=== PATIENT | female | born 1985 | race African-American/Black ===

== ENCOUNTER 2016-07-09 07:28 | Emergency (ER) | payer OTHER ==
[~2016-07-09] VITALS: Wt 55.0 kg
[2016-07-09] MEDS ORDERED: SOD CHLORIDE 0.9% 1,000 ML IV STA (07:36)
--- NOTE | 2016-07-09 08:13 | RADRPT ---
PROCEDURE: Chest Radiograph. CLINICAL INDICATION: Seizure TECHNIQUE: Single frontal chest radiograph. COMPARISON: None available FINDINGS: The cardiomediastinal silhouette is within normal limits. No infiltrate or effusion is seen. Th e bones are intact. IMPRESSION: 1. Unremarkable chest radiograph. RPTAT: AA .Ernie Ocasio MD, MD Date Time Electronically viewed and signed by .Ernie Ocasio MD, on 07/09/2016 08:13 .B/
[2016-07-09] MEDS ORDERED: LACO100T3 PO (08:18)
[2016-07-09] MEDS ORDERED: CLON-429 PO (08:19)
[2016-07-09 08:23] LABS: ADD SCAN DIFF NO
[2016-07-09 08:25] LABS: BASOPHILS % 0.2 % (0.0-2.0); EOSINOPHILS # 0.3 10^3/ul (0.0-0.5); EOSINOPHILS % 5.1 % (0.0-7.0); HEMATOCRIT 34.7 % (37.0-47.0); HEMOGLOBIN 11.4 g/dl (12.0-16.0); LYMPHOCYTES # 1.6 10^3/ul (0.8-2.9); MEAN CORPUSCULAR HEMOGLOBIN 25.8 pg (29.0-33.0); MEAN CORPUSCULAR HGB CONC 32.9 g/dl (32.0-37.0); MEAN CORPUSCULAR VOLUME 78.5 fl (82.0-101.0); MONOCYTE # 0.3 10^3/ul (0.3-0.9); MONOCYTES % 5.9 % (0.0-11.0); NEUTROPHIL # 2.8 10^3/ul (1.6-7.5); NEUTROPHILS % 56.6 % (39.0-77.0); PLATELET COUNT 221 10^3/UL (140-415); RED BLOOD COUNT 4.42 10^6/ul (4.20-5.40); RED CELL DISTRIBUTION WIDTH 17.6 % (11.5-14.5); WHITE BLOOD COUNT 4.9 10^3/ul (4.8-10.8)
[2016-07-09] MEDS ORDERED: OXYC-279 PO (08:26)
[2016-07-09 08:37] LABS: POTASSIUM 4.2 mmol/L (3.5-5.1)
[2016-07-09 08:39] LABS: CREATININE 0.66 mg/dl (0.44-1.00)
[2016-07-09 08:40] LABS: CALCIUM 8.8 mg/dl (8.4-10.2)
--- NOTE | 2016-07-09 08:49 | ERD ---
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 The patient does state that she is allergic to multiple seizure medications, however she is on Vimpat and that does control her seizures. She states that she did not take her Vimpat this morning and states that she forgot to take it ROS All systems reviewed and are negative except as per history of present illness. Medications Home Meds Reported Medications Oxycodone HCl/Acetaminophen (Percocet 5-325 mg Tablet) 1 Each Tablet, 1-2 EACH PO Q6 Y for PAIN, TAB 07/09/16 Clonazepam* (Klonopin*) 0.5 Mg Tab, 0.5 MG PO Q8H Y for ANXIETY, TAB 07/09/16 Lacosamide (Vimpat) 100 Mg Tablet, 100 MG PO BID, TAB 07/09/16 Allergies Allergies: Coded Allergies: divalproex sodium (Verified Adverse Reaction, Unknown, SEIZURES, 07/09/16) levetiracetam (Verified Adverse Reaction, Unknown, SEIZURES, 07/09/16) phenytoin (Verified Adverse Reaction, Unknown, SEIZURES, 07/09/16) topiramate (Verified Adverse Reaction, Unknown, SEIZURES, 07/09/16) PMhx/Soc Hx Neurological Disorder: Yes (seizure) Hx Miscellaneous Medical Probl: Yes (hypoglycemia, fibroids) Hx Alcohol Use: Yes Hx Substance Use: Yes (Marijuana) Hx Tobacco Use: Yes Smoking Status: Current every day smoker Physical Exam Vitals Vital Signs Date Time Temp Pulse Resp B/P Pulse Ox O2 Delivery O2 Flow Rate FiO2 07/09/16 07:45 97.8 67 17 121/84 100 Physical Exam Const: No acute distress Head: Atraumatic Eyes: Normal Conjunctiva ENT: Normal External Ears, Nose and Mouth. Neck: Full range of motion..~ No meningismus. Resp: Clear to auscultation bilaterally Cardio: Regular rate and rhythm, no murmurs Abd: Soft, non tender, non distended. Normal bowel sounds Skin: No petechiae or rashes Back: No midline or flank tenderness Ext: No cyanosis, or edema Neur: Awake and alert Psych: Normal Mood and Affect Result Diagram: 07/09/16 0810 07/09/16 0810 Results 24 hrs Laboratory Tests Test 07/09/16 08:01 07/09/16 08:10 Bedside Glucose 118mg/dL Anion Gap 13 Basophils # 0.010^3/ul Basophils % 0.2% Blood Urea Nitrogen 10mg/dl Calcium Level 8.8mg/dl Carbon Dioxide Level 24mmol/L Chloride Level 109mmol/L Creatinine 0.66mg/dl Eosinophils # 0.310^3/ul Eosinophils % 5.1% Glucose Level 83mg/dl Hematocrit 34.7% Hemoglobin 11.4g/dl Lymphocytes # 1.610^3/ul Lymphocytes % 32.0% Mean Corpuscular Hemoglobin 25.8pg Mean Corpuscular Hemoglobin Concent 32.9g/dl Mean Corpuscular Volume 78.5fl Mean Platelet Volume 9.0fl Monocytes # 0.310^3/ul Monocytes % 5.9% Neutrophils # 2.810^3/ul Neutrophils % 56.6% Nucleated Red Blood Cells # 0.010^3/ul Nucleated Red Blood Cells % 0.0/100WBC Platelet Count 10708^3/UL Potassium Level 4.2mmol/L Red Blood Count 4.4210^6/ul Red Cell Distribution Width 17.6% Serum HCG, Qualitative NEGATIVE Sodium Level 142mmol/L White Blood Count 4.910^3/ul Current Medications Medications (Trade) Dose Ordered Sig/Leo Route PRN Reason Start Time Stop Time Status Last Admin Dose Admin Sodium Chloride (NS) 1,000 ml @ 1,000 mls/hr Q1H STAT IV 07/09/16 07:36 07/09/16 08:35 DC 07/09/16 08:03 Procedures/MDM EKG: Rate/Rhythm: [Normal Sinus Rhythm] QRS, ST, T-waves: [No changes consistent w/ acute ischemia] Impression: [No evidence of ischemia or arrhythmia] Chest X-ray 1V Interpreted by me: Soft Tissue: No acute abnormalities Bones: No acute abnormalities Mediastinum/Cardiac Silhouette/Lungs: [No acute abnormalities] This 30-year-old female presents to the emergency room for evaluation of a seizure. The patient does have a history of seizures and is on Vimpat. She did not take her BiPAP this morning for an unknown reason. She has had no seizure activity here in the emergency room, she is not incontinent of urine, no signs of the tongue abrasion. She is alert oriented to person place and time on my examination. She has no focal neurological deficits. Lab work is within normal limits. The patient will be discharged at this time with instructions to take her medication as prescribed. Smoking Cessation Therapy: Pt. was lectured for greater than 3 minutes on the health risks of continued smoking and the benefits of cessation. Departure Diagnosis: Primary Impression: Seizure disorder Additional Impressions: Microcytic anemia Tobacco abuse Tobacco abuse counseling Condition: Stable NISHA RED DO Jul 09, 2016 08:49
[2016-07-09 10:45] VITALS: BP 121/73; PULSE 72; RESP 18
== END 2016-07-09 10:47 | disposition home or self-care (01) ==
LOC: E/R 07:28
DX: G40.909 Epilepsy, unspecified, not intractable, without status epilepticus (principal); D50.9 Iron deficiency anemia, unspecified; F17.210 Nicotine dependence, cigarettes, uncomplicated; R40.2142 Coma scale, eyes open, spontaneous, at arrival to emergency department; R40.2362 Coma scale, best motor response, obeys commands, at arrival to emergency department; R40.2252 Coma scale, best verbal response, oriented, at arrival to emergency department; Z71.6 Tobacco abuse counseling
CPT/HCPCS: 71010; 80048; 82962; 84703; 85025; 93005; J7030; Z7502

== ENCOUNTER 2016-07-09 11:56 | Inpatient (IN) | payer OTHER ==
[~2016-07-09] VITALS: Ht 162.6 cm; Wt 52.3 kg
[~2016-07-09 11:56] MED LIST: CLON-429 PO; LACO100T3 PO; OXYC-279 PO
[2016-07-09] MEDS ORDERED: SOD CHLORIDE 0.9% 1,000 ML IV SCH (12:19)
[2016-07-09] MEDS ORDERED: ACETAMINOPHEN 325 MG TAB PO PRN (12:30)
[2016-07-09] MEDS ORDERED: ONDANSETRON 4 MG INJ IV PRN (12:30)
--- NOTE | 2016-07-09 13:17 | RADRPT ---
PROCEDURE: CT Brain without contrast. CLINICAL INDICATION: Seizure; Neurologic deficit TECHNIQUE: A CT of the brain was performed on multidetector high-resolution CT scanner utilizing a xial sections from the skull base through the vertex without contrast. One or more of the following dose reduction techniques were used: Automated exposure control, Adjustment of the mA and/or kV acc ording to patient size, and/or use of iterative reconstruction technique. DOSE: CTDI = 40 mGy and the DLP = 555 mGy-cm. COMPARISON: None available FINDINGS: No acute intracranial hemorrhage, significant mass effect or midline shift. The goldstein-white different iation is grossly preserved. The ventricles are normal in size for age. No significant opacification of the visualized paranasal sinuses or mastoids. Partially imaged right lamina papyracea fracture. IMPRESSION: No acute intracranial hemorrhage or significant mass effect. Partially imaged right lamina papyracea fracture. RPTAT: AA .Sunil Shaver MD, MD Date Time Electronically viewed and signed by .Sunil Shaver MD, on 07/09/2016 13:17 .T/
--- NOTE | 2016-07-09 13:32 | ERA ---
ER Documentation Chief Complaint Date/Time DATE: 07/09/16 TIME: 13:29 Chief Complaint WAS DISCHARGED AND HAD SEIZURE IN WAITING ROOM HPI This is a 30-year-old female who presents to the emergency room after a seizure. I evaluated this patient earlier today, and discharge her. She does have idiopathic seizures and is on Vempat and states that she did not take her medication. The patient stated she took her medication while being in the emergency room, and then she was discharged. In the waiting room she had another seizure and was brought back for further evaluation. ROS All systems reviewed and are negative except as per history of present illness. Medications Home Meds Reported Medications Oxycodone HCl/Acetaminophen (Percocet 5-325 mg Tablet) 1 Each Tablet, 1-2 EACH PO Q6 Y for PAIN, TAB 07/09/16 Clonazepam* (Klonopin*) 0.5 Mg Tab, 0.5 MG PO Q8H Y for ANXIETY, TAB 07/09/16 Lacosamide (Vimpat) 100 Mg Tablet, 100 MG PO BID, TAB 07/09/16 Allergies Allergies: Coded Allergies: divalproex sodium (Verified Adverse Reaction, Unknown, SEIZURES, 07/09/16) levetiracetam (Verified Adverse Reaction, Unknown, SEIZURES, 07/09/16) phenytoin (Verified Adverse Reaction, Unknown, SEIZURES, 07/09/16) topiramate (Verified Adverse Reaction, Unknown, SEIZURES, 07/09/16) PMhx/Soc Hx Neurological Disorder: Yes (seizure) Hx Miscellaneous Medical Probl: Yes (hypoglycemia, fibroids) Hx Alcohol Use: Yes Hx Substance Use: Yes (Marijuana) Hx Tobacco Use: Yes Smoking Status: Current every day smoker Physical Exam Vitals Vital Signs Date Time Temp Pulse Resp B/P Pulse Ox O2 Delivery O2 Flow Rate FiO2 07/09/16 12:14 98.4 49 20 122/82 100 Physical Exam INITIAL VITAL SIGNS: Reviewed by me GENERAL: The patient is well developed and appropriate for usual state of health in no apparent distress HEENT: Pupils equal, round, and reactive to light. EOMI. There is no scleral icterus. NECK: C-spine is soft and supple, there is no meningismus. There is no cervical lymphadenopathy. LUNGS: Clear to auscultation bilaterally. There are no rales, wheezes or rhonchi. HEART: Regular rate and rhythm, no murmurs, clicks, rubs or gallops. ABDOMEN: Soft, non-tender, non-distended. There are bowel sounds in all four quadrants. No rebound or guarding. EXTREMITIES: There is no peripheral cyanosis or edema. No focal swelling or erythema. NEUROLOGICAL: The patient moves all four extremities with 5/5 strength. Cranial nerves II - XII are intact. Normal gait. Alert and oriented SKIN: There is no apparent rash or petechiae. HEME/LYMPHATIC: There is no evidence of excessive bruising or lymphedema. PSYCHIATRIC: The patient does not appear anxious or depressed. Results 24 hrs Current Medications Medications (Trade) Dose Ordered Sig/Leo Route PRN Reason Start Time Stop Time Status Last Admin Dose Admin Sodium Chloride (NS) 1,000 ml @ 80 mls/hr [id number] IV 07/09/16 12:19 07/10/16 00:48 07/09/16 12:31 Ondansetron HCl (Zofran Inj) 4 mg BRIDGE ORDER PRN IV NAUSEA AND/OR VOMITING 07/09/16 12:30 07/10/16 12:29 Acetaminophen (Tylenol Tab) 650 mg ER BRIDGE PRN PO MILD PAIN/FEVER 07/09/16 12:30 07/10/16 12:29 Procedures/MDM CT head without: No acute intracranial hemorrhage or significant mass effect. Partially imaged right lamina papyracea fracture. This is a 30-year-old female presents to the emergency room for evaluation of seizures. She was discharged from the emergency room and had a seizure in the waiting room. Given this patient's breakthrough seizures despite taking her oral medications this patient will be placed in for admission at this time. She does have a negative brain CT. And will be admitted to her panel physician , Dr. Schmitz Departure Diagnosis: Primary Impression: Seizure disorder Additional Impression: Closed lamina papyracea fracture Condition: NISHA Nolan DO Jul 09, 2016 13:31
[2016-07-09 13:45] VITALS: BP 127/76; PULSE 86; RESP 22
[2016-07-09] MEDS ORDERED: LORAZEPAM 2 MG INJ IV PRN ×3 (14:00)
[2016-07-09 14:39] VITALS: Ht 162.6 cm; Wt 52.3 kg
[2016-07-09] MEDS ORDERED: NACL 0.9% 3 ML SYG IV SCH (15:30)
[2016-07-09] MEDS: D5W-0.45 NACL + KCL 20 MEQ 1,000 ML IV SCH (16:41)
--- NOTE | 2016-07-09 16:59 | HP ---
DATE OF ADMISSION: 07/09/2016 CHIEF COMPLAINT: Seizures. HISTORY OF PRESENT ILLNESS: The patient is a 30-year-old female with a history of epilepsy. She de nies any other medical history. She states she is on multiple anti-seizure medications, also which have caused her to be somewhat depressed with suicidal ideation and at times it has exacerbated her seizures. The patient is on a medication by the name of Vimpat at home. She states that she follow s up with a neurologist, but has not followed up with him for the past month. She ran out of her se izure medications. She presented to the ED because of persistent seizures. Currently on my exam the patient is able to provide a history, but is behaving as though she is having a tonic-clonic seizur e. She has no postictal state at this time. She denies any other medical history. PAST MEDICAL HISTORY: Seizure disorder. PAST SURGICAL HISTORY: LEEP surgery for precancerous cells in the cervix. HOME MEDICATIONS: 1. Klonopin. 2. Percocet. 3. Vimpat. ALLERGIES: THE PATIENT HAS REPORTED ALLERGIES TO VARIOUS SEIZURE MEDICATIONS, BUT THEY ARE NOT ACTUA L ALLERGIES, SHE JUST STATES SHE JUST FEELS WORSE WITH THOSE MEDICATIONS. FAMILY HISTORY: She is adopted. SOCIAL HISTORY: She smokes marijuana, otherwise denies drug abuse. Denies tobacco use at this time . Denies alcohol abuse. REVIEW OF SYSTEMS: A 12-point review of systems was negative, except for that stated in the HPI. PHYSICAL EXAMINATION: VITAL SIGNS: Temperature is 98.0, pulse 86, respiratory rate 22, blood pressure 127/76, saturation 98% on room air. GENERAL: In no acute distress. The patient is behaving unusually. She is able to talk to me, yet a cting like she is having a tonic-clonic seizure. HEENT: Normocephalic, atraumatic. LUNGS: Clear to auscultation. CARDIOVASCULAR: Regular rate and rhythm. ABDOMEN: Nondistended, nontender, soft. EXTREMITIES: No clubbing, cyanosis or edema. LABORATORY: CBC, white count 7.9, hemoglobin is 11.4, platelets are 221. Chemistry within normal li mits. DIAGNOSTICS: Brain CT shows no acute intracranial process. No mass effect. Partially imaged right lamina fracture. ASSESSMENT AND PLAN: 1. Seizure versus pseudoseizure. The patient's current presentation appears more like a pseudoseizu re in that she is shaking throughout her body, but is able to converse. She has no noted postictal state and she does not appear to be having a partial seizure, as she is moving all of her extremitie s. The patient likely has an underlying psych history. Will consider a psych evaluation. Will con tinue her home medications for seizures, as SHE STATES THAT SHE HAS HAD REACTIONS TO ALL OTHER SEIZU RE MEDICATIONS. I have written for Ativan p.r.n., but I have instructed to give so only if she is h aving an actual seizure. At this point there is no evidence of a true seizure. 2. Prophylaxis. SCDs. Dictated By: VESNA KAHN/NTS Conf#: [id number] DID#: [id number]
[2016-07-09] MEDS: LACOSAMIDE (100 MG/10 ML PO SYR) PO SCH (17:55)
[2016-07-09 20:00] VITALS: BP 112/76; RESP 16
[2016-07-09 20:33] VITALS: BP 112/76; RESP 16
[2016-07-09] MEDS: morphine 2 MG INJ IV PRN (20:33)
[2016-07-09] MEDS ORDERED: NON-FORMULARY/PATIENT OWN MED (Lacosamide (Vimpat) 100 MG) PO SCH (21:00)
[2016-07-10] MEDS: D5W-0.45 NACL + KCL 20 MEQ 1,000 ML IV SCH ×4 (01:15→21:15)
[2016-07-10] MEDS ORDERED: clonAZEPAM 0.5 MG TAB PO ONE (04:00)
[2016-07-10 05:08] LABS: ADD SCAN DIFF NO
[2016-07-10 05:19] LABS: BASOPHILS % 0.2 % (0.0-2.0); EOSINOPHILS # 0.2 10^3/ul (0.0-0.5); EOSINOPHILS % 4.8 % (0.0-7.0); HEMATOCRIT 30.7 % (37.0-47.0); HEMOGLOBIN 10.2 g/dl (12.0-16.0); LYMPHOCYTES # 2.3 10^3/ul (0.8-2.9); LYMPHOCYTES % 48.9 % (15.0-51.0); MEAN CORPUSCULAR HEMOGLOBIN 25.8 pg (29.0-33.0); MEAN CORPUSCULAR HGB CONC 33.2 g/dl (32.0-37.0); MEAN CORPUSCULAR VOLUME 77.7 fl (82.0-101.0); MEAN PLATELET VOLUME 9.7 fl (7.4-10.4); MONOCYTE # 0.3 10^3/ul (0.3-0.9); MONOCYTES % 7.1 % (0.0-11.0); NEUTROPHIL # 1.9 10^3/ul (1.6-7.5); PLATELET COUNT 216 10^3/UL (140-415); RED BLOOD COUNT 3.95 10^6/ul (4.20-5.40); RED CELL DISTRIBUTION WIDTH 17.5 % (11.5-14.5); WHITE BLOOD COUNT 4.8 10^3/ul (4.8-10.8)
[2016-07-10 05:47] LABS: POTASSIUM 3.3 mmol/L (3.5-5.1)
[2016-07-10 05:50] LABS: CALCIUM 8.3 mg/dl (8.4-10.2); CREATININE 0.66 mg/dl (0.44-1.00); MAGNESIUM 1.6 mg/dl (1.7-2.5)
[2016-07-10 07:35] VITALS: BP 121/68; RESP 16
[2016-07-10] MEDS: clonAZEPAM 0.5 MG TAB PO SCH ×2 (08:35→20:49)
[2016-07-10] MEDS: LACOSAMIDE (100 MG/10 ML PO SYR) PO SCH ×2 (08:35→20:49)
[2016-07-10] MEDS: morphine 2 MG INJ IV PRN ×3 (09:29→20:49)
[2016-07-10] MEDS ORDERED: POTASSIUM CHLORIDE (SR) 20 MEQ TAB PO STA (11:58)
[2016-07-10 12:27] LABS: IRON 96 ug/dl (35-150)
[2016-07-10 12:36] LABS: TOTAL IRON BINDING CAPACITY 240 ug/dl (241-421)
[2016-07-10] MEDS ORDERED: MAGNESIUM SULFATE 3 GM in SOD CHLORIDE 0.9% 100 ML IVPB ONE (13:00)
--- NOTE | 2016-07-10 17:37 | PN ---
Date/Time of Note Date/Time of Note DATE: 07/10/16 TIME: 17:34 Assessment/Plan VTE Prophylaxis VTE Prophylaxis Intervention: SCD's Lines/Catheters IV Catheter Type (from Nrs): Peripheral IV Assessment/Plan Chief Complaint/Hosp Course 1. Seizure versus pseudoseizure- presentation appeared more like a pseudoseizure -cont Home Rx -pt having residual weakness, PT eval 2. Hypokalemia-replete PPx- SCD's Problems: Subjective 24 Hr Interval Summary Neurologic: focal-weakness (legs) Exam/Review of Systems Vital Signs Vitals Vital Signs Date Time Temp Pulse Resp B/P Pulse Ox O2 Delivery O2 Flow Rate FiO2 07/10/16 07:35 98.3 55 16 121/68 97 07/09/16 13:45 Room Air Intake and Output 07/09/16 07/09/16 07/10/16 15:00 23:00 07:00 Intake Total 680 ml 1550 ml Balance 680 ml 1550 ml Exam Constitutional: alert, oriented Respiratory: clear to auscultation Cardiovascular: regular rate and rhythm Gastrointestinal: soft, No distended Musculoskeletal: nl extremities to inspection Neurological: focal weakness (l leg) Results Result Diagram: 07/10/16 0451 07/10/16 0451 Results 24 hrs Laboratory Tests Test 07/10/16 04:51 Anion Gap 9 Basophils # 0.0 Basophils % 0.2 Blood Urea Nitrogen 6 L Calcium Level 8.3 L Carbon Dioxide Level 24 Chloride Level 112 H Creatinine 0.66 Eosinophils # 0.2 Eosinophils % 4.8 Glucose Level 96 Hematocrit 30.7 L Hemoglobin 10.2 L Hemoglobin A1c 5.3 Iron Level 96 Lymphocytes # 2.3 Lymphocytes % 48.9 Magnesium Level 1.6 L Mean Corpuscular Hemoglobin 25.8 L Mean Corpuscular Hemoglobin Concent 33.2 Mean Corpuscular Volume 77.7 L Mean Platelet Volume 9.7 Monocytes # 0.3 Monocytes % 7.1 Neutrophils # 1.9 Neutrophils % 39.0 Nucleated Red Blood Cells # 0.0 Nucleated Red Blood Cells % 0.0 Percent Iron Saturation 40 Phosphorus Level 3.0 Platelet Count 216 Potassium Level 3.3 L Red Blood Count 3.95 L Red Cell Distribution Width 17.5 H Sodium Level 142 Total Iron Binding Capacity 240 L White Blood Count 4.8 Medications Medications Current Medications Lorazepam 1 mg 1 mg Q10MIN PRN IV SEIZURES Last administered on 07/09/16 15:36 ; Admin Dose 1 MG; Start 07/09/16 at 14:00 Potassium Chloride/Dextrose/ Sod Cl (D5-1/2ns + KCl 20 Meq) 1,000 ml @ 100 mls/ hr Q10H IV Last administered on 07/10/16 16:05; Admin Dose 100 MLS/HR; Start at 15:15 Ondansetron HCl (Zofran Inj) 4 mg Q6H PRN IV NAUSEA AND/OR VOMITING; Start 07/09 at 15:30 Morphine Sulfate (morphine) 2 mg Q4H PRN IV SEVERE PAIN LEVEL 7-10 Last administered on 07/10/16 15:07; Admin Dose 2 MG; Start 07/09/16 at 15:30 Lacosamide (Vimpat Liq) 100 mg BID PO Last administered on 07/10/16 08:35; Admin Dose 100 MG; Start 07/09/16 at 18:00 Clonazepam (Klonopin) 0.5 mg BID PO Last administered on 07/10/16 08:35; Admin Dose 0.5 MG; Start 07/10/16 at 09:00 VESNA ABRAHAM Jul 10, 2016 17:37
[2016-07-10] MEDS ORDERED: IBUPROFEN 400 MG TAB PO PRN (18:00)
[2016-07-10 20:00] VITALS: BP 104/51; RESP 18
[2016-07-11] MEDS: D5W-0.45 NACL + KCL 20 MEQ 1,000 ML IV SCH ×3 (00:36→17:15)
[2016-07-11] MEDS: morphine 2 MG INJ IV PRN ×6 (01:42→20:30)
[2016-07-11] MEDS: ONDANSETRON 4 MG INJ IV PRN (06:20)
[2016-07-11 06:37] LABS: ADD SCAN DIFF NO
[2016-07-11 06:56] LABS: BASOPHILS % 0.5 % (0.0-2.0); EOSINOPHILS # 0.2 10^3/ul (0.0-0.5); EOSINOPHILS % 5.7 % (0.0-7.0); HEMATOCRIT 31.9 % (37.0-47.0); HEMOGLOBIN 10.5 g/dl (12.0-16.0); LYMPHOCYTES # 2.5 10^3/ul (0.8-2.9); LYMPHOCYTES % 58.2 % (15.0-51.0); MEAN CORPUSCULAR HEMOGLOBIN 25.8 pg (29.0-33.0); MEAN CORPUSCULAR HGB CONC 32.9 g/dl (32.0-37.0); MEAN CORPUSCULAR VOLUME 78.4 fl (82.0-101.0); MEAN PLATELET VOLUME 9.6 fl (7.4-10.4); MONOCYTE # 0.4 10^3/ul (0.3-0.9); MONOCYTES % 9.2 % (0.0-11.0); NEUTROPHIL # 1.1 10^3/ul (1.6-7.5); NEUTROPHILS % 26.4 % (39.0-77.0); PLATELET COUNT 237 10^3/UL (140-415); RED BLOOD COUNT 4.07 10^6/ul (4.20-5.40); RED CELL DISTRIBUTION WIDTH 17.2 % (11.5-14.5); WHITE BLOOD COUNT 4.2 10^3/ul (4.8-10.8)
[2016-07-11 07:13] LABS: POTASSIUM 3.9 mmol/L (3.5-5.1)
[2016-07-11 07:15] LABS: CREATININE 0.64 mg/dl (0.44-1.00)
[2016-07-11 07:16] LABS: PHOSPHORUS 3.8 mg/dl (2.5-4.9)
[2016-07-11 07:17] LABS: CALCIUM 8.6 mg/dl (8.4-10.2); MAGNESIUM 1.7 mg/dl (1.7-2.5)
[2016-07-11 08:21] VITALS: BP 111/57; RESP 16
[2016-07-11] MEDS: LACOSAMIDE (100 MG/10 ML PO SYR) PO SCH ×2 (08:51→20:30)
[2016-07-11] MEDS: clonAZEPAM 0.5 MG TAB PO SCH ×2 (08:51→20:29)
--- NOTE | 2016-07-11 15:02 | PN ---
Date/Time of Note Date/Time of Note DATE: 07/11/16 TIME: 14:57 Assessment/Plan VTE Prophylaxis VTE Prophylaxis Intervention: SCD's Lines/Catheters IV Catheter Type (from Nrs): Peripheral IV Assessment/Plan Chief Complaint/Hosp Course 1. Seizure versus pseudoseizure- presentation appeared more like a pseudoseizure -cont Home Rx -pt having residual weakness in the LE's, PT eval -Neuro consult 2. Hypokalemia-resolved 3. Microcytic Anemia 2/2 Chronic Disease -monitor PPx- SCD's Problems: Subjective 24 Hr Interval Summary Neurologic: focal-weakness (LE's) Exam/Review of Systems Vital Signs Vitals Vital Signs Date Time Temp Pulse Resp B/P Pulse Ox O2 Delivery O2 Flow Rate FiO2 07/11/16 08:21 98.4 52 16 111/57 100 07/09/16 13:45 Room Air Intake and Output 07/10/16 07/10/16 07/11/16 15:00 23:00 07:00 Intake Total 2366 ml 2430 ml Output Total 1800 ml 1800 ml Balance 566 ml 630 ml Exam Constitutional: alert Respiratory: clear to auscultation Cardiovascular: regular rate and rhythm Gastrointestinal: soft, No distended Musculoskeletal: nl extremities to inspection Neurological: focal weakness (LE's) Results Result Diagram: 07/11/16 0455 07/11/16 0455 Results 24 hrs Laboratory Tests Test 07/11/16 04:55 Anion Gap 13 Basophils # 0.0 Basophils % 0.5 Blood Urea Nitrogen 2 L Calcium Level 8.6 Carbon Dioxide Level 24 Chloride Level 108 Creatinine 0.64 Eosinophils # 0.2 Eosinophils % 5.7 Glucose Level 84 Hematocrit 31.9 L Hemoglobin 10.5 L Lymphocytes # 2.5 Lymphocytes % 58.2 H Magnesium Level 1.7 Mean Corpuscular Hemoglobin 25.8 L Mean Corpuscular Hemoglobin Concent 32.9 Mean Corpuscular Volume 78.4 L Mean Platelet Volume 9.6 Monocytes # 0.4 Monocytes % 9.2 Neutrophils # 1.1 L Neutrophils % 26.4 L Nucleated Red Blood Cells # 0.0 Nucleated Red Blood Cells % 0.0 Phosphorus Level 3.8 Platelet Count 237 Potassium Level 3.9 Red Blood Count 4.07 L Red Cell Distribution Width 17.2 H Sodium Level 141 White Blood Count 4.2 L Medications Medications Current Medications Lorazepam 1 mg 1 mg Q10MIN PRN IV SEIZURES Last administered on 07/09/16 15:36 ; Admin Dose 1 MG; Start 07/09/16 at 14:00 Potassium Chloride/Dextrose/ Sod Cl (D5-1/2ns + KCl 20 Meq) 1,000 ml @ 100 mls/ hr Q10H IV Last administered on 07/11/16 12:46; Admin Dose 100 MLS/HR; Start at 15:15 Ondansetron HCl (Zofran Inj) 4 mg Q6H PRN IV NAUSEA AND/OR VOMITING Last administered on 07/11/16 06:20; Admin Dose 4 MG; Start 07/09/16 at 15:30 Morphine Sulfate (morphine) 2 mg Q4H PRN IV SEVERE PAIN LEVEL 7-10 Last administered on 07/11/16 12:45; Admin Dose 2 MG; Start 07/09/16 at 15:30 Lacosamide (Vimpat Liq) 100 mg BID PO Last administered on 07/11/16 08:51; Admin Dose 100 MG; Start 07/09/16 at 18:00 Clonazepam (Klonopin) 0.5 mg BID PO Last administered on 07/11/16 08:51; Admin Dose 0.5 MG; Start 07/10/16 at 09:00 Ibuprofen (Motrin) 400 mg Q6 PRN PO PAIN; Start 07/10/16 at 18:00 VESNA ABRAHAM Jul 11, 2016 15:01
[2016-07-11] MEDS ORDERED: DIPHENHYDRAMINE 25 MG CAP PO PRN (15:30)
[2016-07-11] MEDS ORDERED: MAGNESIUM SULFATE 2 GM/50 ML 50 ML IVPB ONE (16:00)
[2016-07-11 20:00] VITALS: BP 101/50; RESP 18
[2016-07-12] MEDS: morphine 2 MG INJ IV PRN ×3 (00:29→08:44)
[2016-07-12] MEDS: ONDANSETRON 4 MG INJ IV PRN ×2 (02:47→08:41)
[2016-07-12] MEDS: D5W-0.45 NACL + KCL 20 MEQ 1,000 ML IV SCH ×2 (02:48→13:15)
[2016-07-12 05:17] LABS: ADD SCAN DIFF NO
[2016-07-12 05:32] LABS: POTASSIUM 3.8 mmol/L (3.5-5.1)
[2016-07-12 05:34] LABS: CREATININE 0.68 mg/dl (0.44-1.00)
[2016-07-12 05:35] LABS: CALCIUM 8.8 mg/dl (8.4-10.2); MAGNESIUM 1.7 mg/dl (1.7-2.5)
[2016-07-12 05:38] LABS: BASOPHILS % 0.7 % (0.0-2.0); EOSINOPHILS # 0.3 10^3/ul (0.0-0.5); EOSINOPHILS % 5.8 % (0.0-7.0); HEMATOCRIT 35.5 % (37.0-47.0); HEMOGLOBIN 11.5 g/dl (12.0-16.0); LYMPHOCYTES # 2.5 10^3/ul (0.8-2.9); LYMPHOCYTES % 55.1 % (15.0-51.0); MEAN CORPUSCULAR HEMOGLOBIN 25.4 pg (29.0-33.0); MEAN CORPUSCULAR HGB CONC 32.4 g/dl (32.0-37.0); MEAN CORPUSCULAR VOLUME 78.5 fl (82.0-101.0); MEAN PLATELET VOLUME 8.9 fl (7.4-10.4); MONOCYTE # 0.5 10^3/ul (0.3-0.9); NEUTROPHIL # 1.3 10^3/ul (1.6-7.5); NEUTROPHILS % 28.4 % (39.0-77.0); PLATELET COUNT 254 10^3/UL (140-415); RED BLOOD COUNT 4.52 10^6/ul (4.20-5.40); RED CELL DISTRIBUTION WIDTH 17.2 % (11.5-14.5); WHITE BLOOD COUNT 4.5 10^3/ul (4.8-10.8)
[2016-07-12 07:50] VITALS: BP 104/51; RESP 18
[2016-07-12] MEDS: LACOSAMIDE (100 MG/10 ML PO SYR) PO SCH (08:41)
[2016-07-12] MEDS: clonAZEPAM 0.5 MG TAB PO SCH (08:41)
--- NOTE | 2016-07-12 10:39 | PN ---
Date/Time of Note Date/Time of Note DATE: 07/12/16 TIME: 10:34 Assessment/Plan VTE Prophylaxis VTE Prophylaxis Intervention: SCD's Lines/Catheters IV Catheter Type (from Nrsg): Peripheral IV Assessment/Plan Assessment/Plan 1. Seizure versus pseudoseizure- presentation appeared more like a pseudoseizure -cont Home Rx s/p PT evaluation, pt ambulated safely 2. Hypokalemia-resolved 3. Microcytic Anemia 2/2 Chronic Disease -monitor PPx- SCD's SW to see pt pt already has seizure medications at home d/c after SW see pt Subjective 24 Hr Interval Summary Free Text/Dictation no seizures overnight, ambulated with PT today Exam/Review of Systems Vital Signs Vitals Vital Signs Date Time Temp Pulse Resp B/P Pulse Ox O2 Delivery O2 Flow Rate FiO2 07/12/16 07:50 98.4 54 18 104/51 100 07/09/16 13:45 Room Air Intake and Output 07/11/16 07/11/16 07/12/16 15:00 23:00 07:00 Intake Total 1960 ml 1300 ml Output Total 2400 ml 1460 ml Balance -440 ml -160 ml Exam Constitutional: alert Respiratory: clear to auscultation Cardiovascular: regular rate and rhythm Gastrointestinal: soft, No distended Musculoskeletal: nl extremities to inspection Neurological: focal weakness (LE's) Results Result Diagram: 07/12/16 0500 07/12/16 0500 Results 24 hrs Laboratory Tests Test 07/12/16 05:00 Anion Gap 14 Basophils # 0.0 Basophils % 0.7 Blood Urea Nitrogen 4 L Calcium Level 8.8 Carbon Dioxide Level 26 Chloride Level 105 Creatinine 0.68 Eosinophils # 0.3 Eosinophils % 5.8 Glucose Level 90 Hematocrit 35.5 L Hemoglobin 11.5 L Lymphocytes # 2.5 Lymphocytes % 55.1 H Magnesium Level 1.7 Mean Corpuscular Hemoglobin 25.4 L Mean Corpuscular Hemoglobin Concent 32.4 Mean Corpuscular Volume 78.5 L Mean Platelet Volume 8.9 Monocytes # 0.5 Monocytes % 10.0 Neutrophils # 1.3 L Neutrophils % 28.4 L Nucleated Red Blood Cells # 0.0 Nucleated Red Blood Cells % 0.0 Platelet Count 254 Potassium Level 3.8 Red Blood Count 4.52 Red Cell Distribution Width 17.2 H Sodium Level 141 White Blood Count 4.5 L Medications Medications Current Medications Lorazepam 1 mg 1 mg Q10MIN PRN IV SEIZURES Last administered on 07/09/16 15:36 ; Admin Dose 1 MG; Start 07/09/16 at 14:00 Potassium Chloride/Dextrose/ Sod Cl (D5-1/2ns + KCl 20 Meq) 1,000 ml @ 100 mls/ hr Q10H IV Last administered on 07/12/16 02:48; Admin Dose 100 MLS/HR; Start at 15:15 Ondansetron HCl (Zofran Inj) 4 mg Q6H PRN IV NAUSEA AND/OR VOMITING Last administered on 07/12/16 08:41; Admin Dose 4 MG; Start 07/09/16 at 15:30 Morphine Sulfate (morphine) 2 mg Q4H PRN IV SEVERE PAIN LEVEL 7-10 Last administered on 07/12/16 08:44; Admin Dose 2 MG; Start 07/09/16 at 15:30 Lacosamide (Vimpat Liq) 100 mg BID PO Last administered on 07/12/16 08:41; Admin Dose 100 MG; Start 07/09/16 at 18:00 Clonazepam (Klonopin) 0.5 mg BID PO Last administered on 07/12/16 08:41; Admin Dose 0.5 MG; Start 07/10/16 at 09:00 Ibuprofen (Motrin) 400 mg Q6 PRN PO PAIN; Start 07/10/16 at 18:00 Diphenhydramine HCl (Benadryl) 25 mg HS PRN PO INSOMNIA Last administered on 20:29; Admin Dose 25 MG; Start 07/11/16 at 15:30 ALONSO HENDRICKS MD Jul 12, 2016 10:39
--- NOTE | 2016-07-12 10:40 | PDOCDIS ---
Discharge Instructions CONDITION Patient Condition: Good HOME CARE INSTRUCTIONS: Special Diet: regular ACTIVITY: Activity Restrictions: Slowly Increase Activity Rest between Activity Avoid heavy lifting Avoid Heavy Housework FOLLOW UP/APPOINTMENTS Appointments follow up with his own PMD and Neurology physician as outpatient throug her O insurance in 1-2 week after discharge ALONSO HENDRICKS MD Jul 12, 2016 10:40
--- NOTE | 2016-07-12 17:38 | DS ---
DATE OF ADMISSION: 07/09/2016 DATE OF DISCHARGE: 07/12/2016 FINAL DISCHARGE DIAGNOSES: 1. Acute breakthrough seizures versus pseudoseizures. 2. History of a seizure disorder on multiple medications. 3. Hypokalemia secondary to decreased p.o. intake. 4. Microcytic anemia secondary to chronic disease. CONSULTATIONS DONE DURING THIS HOSPITALIZATION: waterside worker consult for placement. HOSPITAL COURSE: This is a 30-year-old female with a past medical history of seizure disorder who d enies any other past medical history. She presented to the [facility] ER with a complaint of multiple seizures at home. It was not clear why the patient has a seizure, but she has been on V impat at home and recently seen by neurologist and she said her medications have been adjusted. She presented with a persistent seizure which was questionable. It was more like a pseudoseizure versu s actual tonic-clonic seizures. The patient had no postictal state. She was alert, oriented, commu nicating and was able to swallow. The patient had a med/surg admission. She was continued on all o f her previous home medications. She is noted to have hypokalemia and hypomagnesemia, which was rep laced. She remained hemodynamically stable. After getting the stable vital signs and adapted physical education aide apy evaluation. She was ambulating without having any difficulty. She is getting discharged to [facility] today. DISPOSITION: To home. The patient was seen by a public health social worker for care home placement. DISCHARGE MEDICATIONS: As per her previous medications. DISCHARGE FOLLOWUP AND INSTRUCTIONS: The patient is to follow with her own PMD and her own neurolog ist through her HMO insurance as outpatient in 1 to 2 weeks after discharge. She has been explained about the discharge plan and followup instructions. She understood and verbalized understanding. Dictated By: ALONSO HENDRICKS MD, KP/LUI Conf#: [id number] DID#: [id number]
== END 2016-07-12 14:05 | disposition home or self-care (01) | DRG 101 ==
LOC: E/R 11:56 → MS2 12:20
PROVIDERS: ADMIT Hospitalist; ATTEND Hospitalist
DX: G40.909 Epilepsy, unspecified, not intractable, without status epilepticus (principal); E83.42 Hypomagnesemia; E87.6 Hypokalemia; D63.8 Anemia in other chronic diseases classified elsewhere
CPT/HCPCS: 70450; 80048; 83036; 83540; 83735; 84100; 85025; 96374; 97162; J2060; J2270; J2405; J3475; J3480; J7030

== ENCOUNTER 2016-08-02 06:24 | Emergency (ER) | payer OTHER ==
[~2016-08-02] VITALS: Ht 162.6 cm; Wt 50.0 kg
[2016-08-02] MEDS ORDERED: SOD CHLORIDE 0.9% 1,000 ML IV STA (06:29)
[2016-08-02] MEDS ORDERED: LORAZEPAM 2 MG INJ IV STA (06:29)
[2016-08-02 06:31] VITALS: Ht 162.6 cm; Wt 50.0 kg
[2016-08-02] MEDS ORDERED: LACOSAMIDE (100 MG/10 ML PO SYR) PO ONE (07:00)
[2016-08-02 07:09] LABS: ADD SCAN DIFF NO
[2016-08-02 07:12] LABS: BASOPHILS % 0.5 % (0.0-2.0); EOSINOPHILS # 0.3 10^3/ul (0.0-0.5); EOSINOPHILS % 8.1 % (0.0-7.0); HEMATOCRIT 32.3 % (37.0-47.0); HEMOGLOBIN 10.6 g/dl (12.0-16.0); LYMPHOCYTES # 1.6 10^3/ul (0.8-2.9); LYMPHOCYTES % 40.6 % (15.0-51.0); MEAN CORPUSCULAR HEMOGLOBIN 25.8 pg (29.0-33.0); MEAN CORPUSCULAR HGB CONC 32.8 g/dl (32.0-37.0); MEAN CORPUSCULAR VOLUME 78.6 fl (82.0-101.0); MEAN PLATELET VOLUME 9.6 fl (7.4-10.4); MONOCYTE # 0.3 10^3/ul (0.3-0.9); MONOCYTES % 7.6 % (0.0-11.0); NEUTROPHIL # 1.6 10^3/ul (1.6-7.5); NEUTROPHILS % 42.9 % (39.0-77.0); PLATELET COUNT 332 10^3/UL (140-415); RED BLOOD COUNT 4.11 10^6/ul (4.20-5.40); RED CELL DISTRIBUTION WIDTH 17.5 % (11.5-14.5); WHITE BLOOD COUNT 3.8 10^3/ul (4.8-10.8)
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
[2016-08-02 07:25] LABS: INR 1.12; PARTIAL THROMBOPLASTIN TIME 29.1 Sec (25.0-35.0); PROTIME 14.4 Sec (12.2-14.2); PT RATIO 1.1
[2016-08-02] MEDS ORDERED: LACO150T2 PO (07:26)
[2016-08-02] MEDS ORDERED: CLON-429 PO (07:26)
[2016-08-02 07:30] LABS: ALBUMIN 3.4 g/dl (3.3-4.9); CHLORIDE 109 mmol/L (97-110); POTASSIUM 3.8 mmol/L (3.5-5.1); SODIUM 143 mmol/L (135-144)
[2016-08-02 07:32] LABS: ALBUMIN/GLOBULIN RATIO 1.25; ANION GAP 11 (8-16); ASPARTATE AMINO TRANSFERASE 19 IU/L (15-46); BILIRUBIN,INDIRECT 0.2 mg/dl (0-1.1); BILIRUBIN,TOTAL 0.2 mg/dl (0.2-1.3); CARBON DIOXIDE 27 mmol/L (21-31); CREATININE 0.73 mg/dl (0.44-1.00); TOTAL PROTEIN 6.1 g/dl (6.1-8.1)
[2016-08-02 07:33] LABS: ALANINE AMINOTRANSFERASE 21 IU/L (13-69); ALKALINE PHOSPHATASE 60 IU/L (42-121); BLOOD UREA NITROGEN 7 mg/dl (7-20); CALCIUM 8.8 mg/dl (8.4-10.2); GLUCOSE 94 mg/dl (70-220)
[2016-08-02 07:36] LABS: ADD UMIC YES; URINE BILIRUBIN (Dip) NEGATIVE (NEGATIVE); URINE BLOOD (Dip) 3+ (NEGATIVE); URINE COLOR LT. YELLOW (YELLOW); URINE GLUCOSE (Dip) NEGATIVE (NEGATIVE); URINE KETONES (Dip) NEGATIVE (NEGATIVE); URINE LEUKOCYTE ESTERASE (Dip) NEGATIVE (NEGATIVE); URINE NITRITE (Dip) NEGATIVE (NEGATIVE); URINE TOTAL PROTEIN (Dip) NEGATIVE (NEGATIVE); URINE UROBILINOGEN (Dip) 0.2 E.U./dL (0.1-1.0)
[2016-08-02 07:54] LABS: BACTERIA,URINE FEW
[2016-08-02 07:57] LABS: ACETAMINOPHEN < 10.0 ug/ml (10.0-30.0); ETHANOL < 10.0 mg/dl; SALICYLATE < 1.0 mg/dl (5.0-30.0)
[2016-08-02 08:14] LABS: BARBITURATES Negative (NEGATIVE); BENZODIAZEPINES Negative (NEGATIVE); CANNABINOIDS Positive (NEGATIVE); COCAINE Negative (NEGATIVE); OPIATES Negative (NEGATIVE)
[2016-08-02 12:12] VITALS: BP 119/59; PULSE 62; RESP 18; TEMP 98.1
== END 2016-08-02 12:30 | disposition home or self-care (01) ==
LOC: E/R 06:24
DX: G40.909 Epilepsy, unspecified, not intractable, without status epilepticus (principal); R40.2252 Coma scale, best verbal response, oriented, at arrival to emergency department; R00.1 Bradycardia, unspecified; R40.2142 Coma scale, eyes open, spontaneous, at arrival to emergency department; R40.2362 Coma scale, best motor response, obeys commands, at arrival to emergency department; Z76.0 Encounter for issue of repeat prescription
CPT/HCPCS: 80053; 80306; 80307; 81001; 84703; 85025; 85610; 85730; 93005; J2060; J7030; Z7610; 81003; 96361; 96374

== ENCOUNTER 2016-08-17 23:44 | Emergency (ER) | payer OTHER ==
[~2016-08-17] VITALS: Ht 162.6 cm; Wt 50.9 kg
[~2016-08-17 23:44] MED LIST changes: +LACO150T2 PO
[2016-08-17 23:52] VITALS: Ht 162.6 cm; Wt 50.9 kg
[2016-08-18] MEDS ORDERED: LORAZEPAM 2 MG INJ IV STA (00:15)
[2016-08-18 00:26] LABS: ADD SCAN DIFF NO
[2016-08-18 00:36] LABS: BASOPHILS % 0.5 % (0.0-2.0); EOSINOPHILS # 0.2 10^3/ul (0.0-0.5); EOSINOPHILS % 2.8 % (0.0-7.0); HEMATOCRIT 34.5 % (37.0-47.0); HEMOGLOBIN 11.5 g/dl (12.0-16.0); LYMPHOCYTES # 3.1 10^3/ul (0.8-2.9); LYMPHOCYTES % 49.9 % (15.0-51.0); MEAN CORPUSCULAR HEMOGLOBIN 26.2 pg (29.0-33.0); MEAN CORPUSCULAR HGB CONC 33.3 g/dl (32.0-37.0); MEAN CORPUSCULAR VOLUME 78.6 fl (82.0-101.0); MEAN PLATELET VOLUME 9.3 fl (7.4-10.4); MONOCYTE # 0.5 10^3/ul (0.3-0.9); MONOCYTES % 7.5 % (0.0-11.0); NEUTROPHIL # 2.4 10^3/ul (1.6-7.5); NEUTROPHILS % 39.1 % (39.0-77.0); PLATELET COUNT 298 10^3/UL (140-415); RED BLOOD COUNT 4.39 10^6/ul (4.20-5.40); RED CELL DISTRIBUTION WIDTH 17.7 % (11.5-14.5); WHITE BLOOD COUNT 6.1 10^3/ul (4.8-10.8)
[2016-08-18 00:39] LABS: CALCIUM 8.8 mg/dl (8.4-10.2); CREATININE 0.69 mg/dl (0.44-1.00); POTASSIUM 3.7 mmol/L (3.5-5.1)
--- NOTE | 2016-08-18 01:02 | ERD ---
ER Documentation Chief Complaint Date/Time DATE: 08/18/16 TIME: 01:01 Chief Complaint SEIZURE UNKNOWN TIME. EMS FOUND PATIENT ON STREET WITH KI UPPER EXT TREMOR HPI -year-old female had a seizure. Patient has history of seizure. EMS found patient history. She has a tremor. Patient says she has been out of the bed lapse of feeding and her Klonopin. No fevers no chills no nausea no vomiting no tongue biting. ROS All systems reviewed and are negative except as per history of present illness. Medications Home Meds Active Scripts Clonazepam* (Klonopin*) 0.5 Mg Tab, 0.5 MG PO DAILY, #20 TAB Prov:ANGELA,LUCIANO 08/02/16 Lacosamide (Vimpat) 150 Mg Tablet, 150 MG PO DAILY, #30 TAB Prov:LUCIANO MILLER 08/02/16 Reported Medications Oxycodone HCl/Acetaminophen (Percocet 5-325 mg Tablet) 1 Each Tablet, 1-2 EACH PO Q6 Y for PAIN, TAB 07/09/16 Clonazepam* (Klonopin*) 0.5 Mg Tab, 0.5 MG PO Q8H Y for ANXIETY, TAB 07/09/16 Lacosamide (Vimpat) 100 Mg Tablet, 100 MG PO BID, TAB 07/09/16 Allergies Allergies: Coded Allergies: divalproex sodium (Verified Adverse Reaction, Unknown, SEIZURES, 08/02/16) levetiracetam (Verified Adverse Reaction, Unknown, SEIZURES, 08/02/16) phenytoin (Verified Adverse Reaction, Unknown, SEIZURES, 08/02/16) topiramate (Verified Adverse Reaction, Unknown, SEIZURES, 08/02/16) PMhx/Soc History of Surgery: Yes ([facility] s[facility]) Anesthesia Reaction: No Hx Neurological Disorder: Yes (Seizures) Hx Respiratory Disorders: No Hx Cardiac Disorders: No Hx Psychiatric Problems: Yes (Anxiety) Hx Miscellaneous Medical Probl: Yes Hx Alcohol Use: No Hx Substance Use: Yes Hx Tobacco Use: No Smoking Status: Unknown if ever smoked Physical Exam Vitals Vital Signs Date Time Temp Pulse Resp B/P Pulse Ox O2 Delivery O2 Flow Rate FiO2 08/17/16 23:52 98.4 72 20 108/79 100 Physical Exam Const: [] Head: Atraumatic Eyes: Normal Conjunctiva ENT: Normal External Ears, Nose and Mouth. Neck: Full range of motion..~ No meningismus. Resp: Clear to auscultation bilaterally Cardio: Regular rate and rhythm, no murmurs Abd: Soft, non tender, non distended. Normal bowel sounds Skin: No petechiae or rashes Back: No midline or flank tenderness Ext: No cyanosis, or edema Neur: Awake and alert Psych: Normal Mood and Affect Result Diagram: 08/18/16 0005 08/18/16 0005 Results 24 hrs Laboratory Tests Test 08/18/16 00:05 White Blood Count 6.110^3/ul Red Blood Count 4.3910^6/ul Hemoglobin 11.5g/dl Hematocrit 34.5% Mean Corpuscular Volume 78.6fl Mean Corpuscular Hemoglobin 26.2pg Mean Corpuscular Hemoglobin Concent 33.3g/dl Red Cell Distribution Width 17.7% Platelet Count 26235^3/UL Mean Platelet Volume 9.3fl Neutrophils % 39.1% Lymphocytes % 49.9% Monocytes % 7.5% Eosinophils % 2.8% Basophils % 0.5% Nucleated Red Blood Cells % 0.0/100WBC Neutrophils # 2.410^3/ul Lymphocytes # 3.110^3/ul Monocytes # 0.510^3/ul Eosinophils # 0.210^3/ul Basophils # 0.010^3/ul Nucleated Red Blood Cells # 0.010^3/ul Sodium Level 136mmol/L Potassium Level 3.7mmol/L Chloride Level 106mmol/L Carbon Dioxide Level 24mmol/L Anion Gap 10 Blood Urea Nitrogen 8mg/dl Creatinine 0.69mg/dl Glucose Level 108mg/dl Calcium Level 8.8mg/dl Current Medications Medications (Trade) Dose Ordered Sig/Leo Route PRN Reason Start Time Stop Time Status Last Admin Dose Admin Lorazepam (Ativan) 1 mg ONCE STAT IV 08/18/16 00:15 08/18/16 00:16 DC 08/18/16 00:38 Procedures/MDM Medical decision-making: This very pleasant patient comes in essentially for recurrent seizure disorder. Patient be discharged home with a refill of her medications. Follow-up with PCP. Return for seizure-like activity. Departure Diagnosis: Primary Impression: Seizure disorder Condition: Stable LILLIE NAGUIANO Aug 18, 2016 01:02
[2016-08-18] MEDS ORDERED: LACO150T2 PO (01:03)
[2016-08-18] MEDS ORDERED: LACO100T3 PO (01:03)
[2016-08-18] MEDS ORDERED: CLON-429 PO (01:05)
[2016-08-18 03:18] VITALS: BP 113/84; PULSE 72; RESP 20; TEMP 98.2
== END 2016-08-18 02:08 | disposition home or self-care (01) ==
LOC: E/R 23:44
DX: G40.909 Epilepsy, unspecified, not intractable, without status epilepticus (principal); R40.2142 Coma scale, eyes open, spontaneous, at arrival to emergency department; R40.2252 Coma scale, best verbal response, oriented, at arrival to emergency department; R40.2362 Coma scale, best motor response, obeys commands, at arrival to emergency department
CPT/HCPCS: 36415; 80048; 85025; 96374; J2060; Z7502

== ENCOUNTER 2016-09-09 01:21 | Emergency (ER) | payer OTHER ==
[~2016-09-09] VITALS: Ht 160 cm; Wt 52.0 kg
[2016-09-09 01:22] VITALS: Ht 160 cm; Wt 52.0 kg
[2016-09-09] MEDS ORDERED: SOD CHLORIDE 0.9% 1,000 ML IV STA ×2 (01:25→03:08)
[2016-09-09] MEDS ORDERED: LACO200T2 PO (01:28)
[2016-09-09] MEDS ORDERED: LORAZEPAM 2 MG INJ IV ONE ×3 (01:30→11:30)
[2016-09-09] MEDS ORDERED: ONDANSETRON 4 MG INJ IV STA (01:33)
[2016-09-09] MEDS ORDERED: ONDANSETRON 4 MG INJ ONE (01:34)
[2016-09-09 02:10] LABS: ADD SCAN DIFF NO
[2016-09-09 02:15] LABS: BASOPHILS % 0.4 % (0.0-2.0); EOSINOPHILS # 0.2 10^3/ul (0.0-0.5); EOSINOPHILS % 3.9 % (0.0-7.0); HEMATOCRIT 35.1 % (37.0-47.0); HEMOGLOBIN 11.7 g/dl (12.0-16.0); LYMPHOCYTES # 1.6 10^3/ul (0.8-2.9); MEAN CORPUSCULAR HEMOGLOBIN 26.1 pg (29.0-33.0); MEAN CORPUSCULAR HGB CONC 33.3 g/dl (32.0-37.0); MEAN CORPUSCULAR VOLUME 78.2 fl (82.0-101.0); MEAN PLATELET VOLUME 9.1 fl (7.4-10.4); MONOCYTE # 0.6 10^3/ul (0.3-0.9); MONOCYTES % 9.7 % (0.0-11.0); NEUTROPHIL # 3.3 10^3/ul (1.6-7.5); NEUTROPHILS % 57.8 % (39.0-77.0); PLATELET COUNT 336 10^3/UL (140-415); RED BLOOD COUNT 4.49 10^6/ul (4.20-5.40); RED CELL DISTRIBUTION WIDTH 17.4 % (11.5-14.5); WHITE BLOOD COUNT 5.7 10^3/ul (4.8-10.8)
[2016-09-09 02:37] LABS: CHLORIDE 106 mmol/L (97-110); POTASSIUM 3.6 mmol/L (3.5-5.1); SODIUM 141 mmol/L (135-144)
[2016-09-09 02:40] LABS: ANION GAP 15 (8-16); CARBON DIOXIDE 24 mmol/L (21-31); CREATININE 0.78 mg/dl (0.44-1.00)
[2016-09-09 02:41] LABS: BLOOD UREA NITROGEN 9 mg/dl (7-20); CALCIUM 9.1 mg/dl (8.4-10.2); GLUCOSE 80 mg/dl (70-220)
[2016-09-09 03:05] LABS: TROPONIN-I < 0.012 ng/ml (0.00-0.12)
--- NOTE | 2016-09-09 03:26 | RADRPT ---
PROCEDURE: XR Chest. CLINICAL INDICATION: Shortness of breath. TECHNIQUE: AP Portable chest. COMPARISON: 07/09/2016 FINDINGS: The cardiomediastinal silhouette is normal. The lungs are clear. The osseous structures are unrema rkable. IMPRESSION: No acute findings. RPTAT: HIKT .Samson Virgen MD, MD Date Time Electronically viewed and signed by .Samson Virgen MD, MD on 09/09/2016 03:26 .T/
[2016-09-09] MEDS ORDERED: OLANZAPINE 10 MG VIAL IM ONE (03:30)
[2016-09-09 03:45] LABS: URINE BLOOD (Dip) POC Negative (NEGATIVE)
--- NOTE | 2016-09-09 03:50 | ERA ---
ER Documentation Chief Complaint Date/Time DATE: 09/09/16 TIME: 03:45 Chief Complaint bib ra for "seizure" after smoking marijuana, awake during sz, hx epilepsy HPI 31-year-old woman brought in by EMS off the streets for possible seizure. She had voluntary jerking of her upper extremities bilaterally while awake, she initially stated she had a seizure history and uses lacosamide and benzodiazepines. She later stated she is having hallucinations and sees things and states she has no history of seizures. She denies fevers or chills, no chest pain or shortness of breath, no vomiting or diarrhea. Patient was transported here by EMS agitated with bizarre behavior. ROS All systems reviewed and are negative except as per history of present illness. Medications Home Meds Active Scripts Lacosamide (Vimpat) 200 Mg Tablet, 200 MG PO BID, #60 TAB Prov:HELENE KERN MD 09/09/16 Clonazepam* (Klonopin*) 0.5 Mg Tab, 0.5 MG PO Q8H Y for ANXIETY, #20 TAB Prov:LILLIE ANGUIANO. 08/18/16 Lacosamide (Vimpat) 150 Mg Tablet, 150 MG PO DAILY, #30 TAB Prov:LILLIE ANGUIANO. 08/18/16 Lacosamide (Vimpat) 100 Mg Tablet, 100 MG PO BID for 30 Days, TAB Prov:LILLIE ANGUIANO. 08/18/16 Clonazepam* (Klonopin*) 0.5 Mg Tab, 0.5 MG PO DAILY, #20 TAB Prov:LUCIANO MILLER 08/02/16 Reported Medications Oxycodone HCl/Acetaminophen (Percocet 5-325 mg Tablet) 1 Each Tablet, 1-2 EACH PO Q6 Y for PAIN, TAB 07/09/16 Clonazepam* (Klonopin*) 0.5 Mg Tab, 0.5 MG PO Q8H Y for ANXIETY, TAB 07/09/16 Allergies Allergies: Coded Allergies: divalproex sodium (Verified Adverse Reaction, Unknown, SEIZURES, 08/02/16) levetiracetam (Verified Adverse Reaction, Unknown, SEIZURES, 08/02/16) phenytoin (Verified Adverse Reaction, Unknown, SEIZURES, 08/02/16) topiramate (Verified Adverse Reaction, Unknown, SEIZURES, 08/02/16) PMhx/Soc Possible seizure history, psychiatric illness, drug abuse History of Surgery: Yes ([facility] s[facility]) Anesthesia Reaction: No Hx Neurological Disorder: Yes (Seizures) Hx Respiratory Disorders: No Hx Cardiac Disorders: No Hx Psychiatric Problems: Yes (Anxiety) Hx Miscellaneous Medical Probl: Yes Hx Alcohol Use: No Hx Substance Use: Yes Hx Tobacco Use: No Smoking Status: Unknown if ever smoked FmHx Family History: No diabetes Physical Exam Vitals Vital Signs Date Time Temp Pulse Resp B/P Pulse Ox O2 Delivery O2 Flow Rate FiO2 09/09/16 03:50 98.1 63 18 128/82 98 Room Air 09/09/16 01:22 98.1 63 18 166/141 100 Physical Exam GENERAL: Well-developed, well-nourished, agitated, appears intoxicated HEENT: Moist mucous membranes, pink conjunctiva, no cervical spine tenderness or step-off deformities, no goiter, no jaundice or icterus, extraocular movements intact without pain. No submandibular induration, and no pharyngeal erythema NEURO: Alert and oriented 3, cranial nerves II through XII intact bilaterally, pupils equal round reactive to light, no focal deficits or facial asymmetry, sensation intact distally Strength 5/5 in upper and lower extremities bilaterally CARDIAC: Regular rate and rhythm, no murmurs rubs or gallops LUNGS: Clear bilaterally no wheezing crackles or stridor ABDOMEN: Soft nontender, no guarding, no rigidity, no rebound, no psoas sign no obturator sign. Normoactive bowel sounds SKIN: Warm and dry to touch, no abrasions, contusions, or hematomas, no lacerations, no ecchymosis, no target lesions, and without ulcers EXTREMITIES: No clubbing cyanosis or edema, calves are bilaterally symmetrical, no Homans sign, no popliteal cord sign. Distal pulses equal and bilateral PSYCH: Agitated Result Diagram: 09/09/16 0130 09/09/16 013 Results 24 hrs Laboratory Tests Test 09/09/16 01:30 09/09/16 03:15 09/09/16 03:45 White Blood Count 5.710^3/ul Red Blood Count 4.4910^6/ul Hemoglobin 11.7g/dl Hematocrit 35.1% Mean Corpuscular Volume 78.2fl Mean Corpuscular Hemoglobin 26.1pg Mean Corpuscular Hemoglobin Concent 33.3g/dl Red Cell Distribution Width 17.4% Platelet Count 56518^3/UL Mean Platelet Volume 9.1fl Neutrophils % 57.8% Lymphocytes % 28.0% Monocytes % 9.7% Eosinophils % 3.9% Basophils % 0.4% Nucleated Red Blood Cells % 0.0/100WBC Neutrophils # 3.310^3/ul Lymphocytes # 1.610^3/ul Monocytes # 0.610^3/ul Eosinophils # 0.210^3/ul Basophils # 0.010^3/ul Nucleated Red Blood Cells # 0.010^3/ul Sodium Level 141mmol/L Potassium Level 3.6mmol/L Chloride Level 106mmol/L Carbon Dioxide Level 24mmol/L Anion Gap 15 Blood Urea Nitrogen 9mg/dl Creatinine 0.78mg/dl Glucose Level 80mg/dl Calcium Level 9.1mg/dl Troponin I < 0.012ng/ml Salicylates Level < 1.0mg/dl Acetaminophen Level < 10.0ug/ml Ethyl Alcohol Level < 10.0mg/dl Urine Color LT. YELLOW Urine Clarity CLEAR Urine pH 5.5 Urine Specific [place] 1.020 Urine Ketones NEGATIVE Urine Nitrite NEGATIVE Urine Bilirubin NEGATIVE Urine Urobilinogen 0.2 E.U./dL Urine Leukocyte Esterase NEGATIVE Urine Hemoglobin NEGATIVE Urine Glucose NEGATIVE% Urine Total Protein NEGATIVE Urine Opiates Screen NEGATIVE Urine Barbiturates NEGATIVE Urine Amphetamines Screen POSITIVE Urine Benzodiazepines Screen NEGATIVE Urine Cocaine Screen NEGATIVE Urine Cannabinoids POSITIVE Bedside Urine pH (LAB) 6.0 Bedside Urine Protein (LAB) Trace Bedside Urine Glucose (UA) Negative Bedside Urine Ketones (LAB) 1+ Bedside Urine Blood Negative Bedside Urine Nitrite (LAB) Negative Bedside Urine Leukocyte Esterase (L Negative Current Medications Medications (Trade) Dose Ordered Sig/Leo Route PRN Reason Start Time Stop Time Status Last Admin Dose Admin Sodium Chloride (NS) 1,000 ml @ 1,000 mls/hr Q1H STAT IV 09/09/16 01:25 09/09/16 02:24 DC 09/09/16 01:44 Lorazepam (Ativan) 1 mg ONCE ONCE IV 09/09/16 01:30 09/09/16 01:31 DC 09/09/16 01:44 Ondansetron HCl (Zofran Inj) 4 mg ONCE STAT IV 09/09/16 01:33 09/09/16 01:35 DC 09/09/16 01:44 Ondansetron HCl (Zofran Inj) 4 mg STK-MED ONCE .ROUTE 09/09/16 01:34 09/09/16 01:35 DC Lorazepam 2 mg 2 mg ONCE ONCE IV 09/09/16 02:30 09/09/16 02:31 DC 09/09/16 02:12 Sodium Chloride (NS) 1,000 ml @ 1,000 mls/hr Q1H STAT IV 09/09/16 03:08 09/09/16 04:07 DC 09/09/16 03:47 Olanzapine (Zyprexa) 10 mg ONCE ONCE IM 09/09/16 03:30 09/09/16 03:31 DC 09/09/16 03:41 Procedures/MDM IV line was established patient was placed on manager monitoring rhythm strip revealed a sinus rhythm at about 90 bpm with upright P and T waves. Patient was afebrile. For initial agitation I administered lorazepam 1 mg intramuscular injection later followed by 2 mg of Ativan IM for continued agitation and involuntary upper extremity jerking. Patient also received Zofran 4 mg IV CBC and electrolytes were unremarkable, alcohol level was negative. For continued combative behavior I administered olanzapine 10 mg intramuscular injection and with continued complaints of auditory and visual hallucinations I ordered tele-psychiatry evaluation. Straight catheterization of the bladder was performed, and I administered 1 L of normal saline intravenously for dehydration. One AP view of the chest performed, read by me reveals no acute infiltrates, normal mediastinum, sharp costophrenic and cardiac borders, no air under the diaphragm. EKG performed, read by me revealed a normal sinus rhythm at 93 bpm, normal axis , narrow QRS complex, no concerning ST elevations or depressions noted. Patient's behavioral symptoms have stabilized while in the department. Patient is medically cleared and appropriate for psychiatric evaluation and work up. No e/o neurologic, toxic, infectious, or metabolic cause. Tylenol and aspirin levels were negative, drug screen was positive for methamphetamines consistent with her presentation and cannabinoids Differential diagnoses considered, included but not limited to acute coronary syndrome, pulmonary embolism, aortic dissection, abdominal aortic aneurysm, sepsis, stroke, meningitis, encephalitis, pneumonia, appendicitis, cholecystitis , bowel obstruction, pyelonephritis, nephrolithiasis, cystitis, as well as metabolic, hematologic, and electrolyte abnormalities. As well as abscess, cellulitis, fractures, and dislocations. Departure Diagnosis: Primary Impression: Seizure Additional Impressions: Methamphetamine abuse Psychiatric illness Condition: Stable Patient Instructions: Seizure, Recurrent [Adult] HELENE KERN MD September 09, 2016 03:50
[2016-09-09 03:53] LABS: ADD UMIC NO; URINE BILIRUBIN (Dip) NEGATIVE (NEGATIVE); URINE BLOOD (Dip) NEGATIVE (NEGATIVE); URINE COLOR LT. YELLOW (YELLOW); URINE GLUCOSE (Dip) NEGATIVE (NEGATIVE); URINE KETONES (Dip) NEGATIVE (NEGATIVE); URINE LEUKOCYTE ESTERASE (Dip) NEGATIVE (NEGATIVE); URINE NITRITE (Dip) NEGATIVE (NEGATIVE); URINE TOTAL PROTEIN (Dip) NEGATIVE (NEGATIVE); URINE UROBILINOGEN (Dip) 0.2 E.U./dL (0.1-1.0)
[2016-09-09 04:01] LABS: ACETAMINOPHEN < 10.0 ug/ml (10.0-30.0); SALICYLATE < 1.0 mg/dl (5.0-30.0)
[2016-09-09 04:30] LABS: BARBITURATES NEGATIVE (NEGATIVE); BENZODIAZEPINES NEGATIVE (NEGATIVE); CANNABINOIDS POSITIVE (NEGATIVE); COCAINE NEGATIVE (NEGATIVE); OPIATES NEGATIVE (NEGATIVE)
--- NOTE | 2016-09-09 08:28 | PSY ---
Date/Time of Note Date/Time of Note DATE: 09/09/16 TIME: 08:23 Psychiatric Subjective Eval Consent Pt consented to telemedicine: Yes Subjective Evaluation Patient location: emergency Chief Complaint: bib ra for "seizure" after smoking marijuana, awake during sz , hx epilepsy History of present illness Spoke with Dr Monsivais. 31 yo homeless disabled AAF BIB EMS after a seizure. Pt c/o VH. No SI or HI. UDS + thc and amph. Pt is on Klonopin and Vimpat ( the latter is known to cause VH as well). Pt is drowsy. Denies to me SI or HI , denies AH , denies paranoia. + Vh, "shadows". Says, she feels depressed. Willing to go to a retirement. Pt is on psych meds, last inpt was 2 weeks ago, says , she has her meds in her belongings. Does nto recall names of her psych meds. Past psychiatric history last inpt was 2 weeks ago Hospitalization: yes Medical history Problems Medical Problems: (1) Breakthrough seizure Status: Acute (2) Closed lamina papyracea fracture Status: Acute (3) Medication refill Status: Acute (4) Menstrual disorder Status: Acute (5) Methamphetamine abuse Status: Acute (6) Microcytic anemia Status: Acute (7) Psychiatric illness Status: Acute (8) Seizure Status: Acute (9) Seizure disorder Status: Acute (10) Seizure disorder Status: Acute (11) Seizure disorder Status: Acute (12) Tobacco abuse Status: Acute (13) Tobacco abuse counseling Status: Acute Allergies: Coded Allergies: divalproex sodium (Verified Adverse Reaction, Unknown, SEIZURES, 08/02/16) levetiracetam (Verified Adverse Reaction, Unknown, SEIZURES, 08/02/16) phenytoin (Verified Adverse Reaction, Unknown, SEIZURES, 08/02/16) topiramate (Verified Adverse Reaction, Unknown, SEIZURES, 08/02/16) Substance Abuse Substance abuse history: Yes Prior substance abuse treatmen: No Social History Marital status: single Level of education: 11th grade DPA/Conservatorship: No Occupation/Nursing Home: homeless, on ssi Psychiatric Objective Eval Mental Status Examination: Appearance: Disheveled Eye Contact: Fair Behavior: Cooperative Speech: Clear AFFECT: Appropriate Mood: Appropriate/Full Though Process: Linear Thought Content: Hallucinations Suicidal: No Homicidal: No On 72 hour hold: No Orientation: x4 Cognition: Drowsy Insight: Impared Judgement: Impared Laboratory Results Laboratory Tests Test 09/09/16 01:30 09/09/16 03:15 09/09/16 03:45 White Blood Count 5.710^3/ul Red Blood Count 4.4910^6/ul Hemoglobin 11.7g/dl Hematocrit 35.1% Mean Corpuscular Volume 78.2fl Mean Corpuscular Hemoglobin 26.1pg Mean Corpuscular Hemoglobin Concent 33.3g/dl Red Cell Distribution Width 17.4% Platelet Count 51602^3/UL Mean Platelet Volume 9.1fl Neutrophils % 57.8% Lymphocytes % 28.0% Monocytes % 9.7% Eosinophils % 3.9% Basophils % 0.4% Nucleated Red Blood Cells % 0.0/100WBC Neutrophils # 3.310^3/ul Lymphocytes # 1.610^3/ul Monocytes # 0.610^3/ul Eosinophils # 0.210^3/ul Basophils # 0.010^3/ul Nucleated Red Blood Cells # 0.010^3/ul Sodium Level 141mmol/L Potassium Level 3.6mmol/L Chloride Level 106mmol/L Carbon Dioxide Level 24mmol/L Anion Gap 15 Blood Urea Nitrogen 9mg/dl Creatinine 0.78mg/dl Glucose Level 80mg/dl Calcium Level 9.1mg/dl Troponin I < 0.012ng/ml Salicylates Level < 1.0mg/dl Acetaminophen Level < 10.0ug/ml Ethyl Alcohol Level < 10.0mg/dl Urine Color LT. YELLOW Urine Clarity CLEAR Urine pH 5.5 Urine Specific [place] 1.020 Urine Ketones NEGATIVE Urine Nitrite NEGATIVE Urine Bilirubin NEGATIVE Urine Urobilinogen 0.2 E.U./dL Urine Leukocyte Esterase NEGATIVE Urine Hemoglobin NEGATIVE Urine Glucose NEGATIVE% Urine Total Protein NEGATIVE Urine Opiates Screen NEGATIVE Urine Barbiturates NEGATIVE Urine Amphetamines Screen POSITIVE Urine Benzodiazepines Screen NEGATIVE Urine Cocaine Screen NEGATIVE Urine Cannabinoids POSITIVE Bedside Urine pH (LAB) 6.0 Bedside Urine Protein (LAB) Trace Bedside Urine Glucose (UA) Negative Bedside Urine Ketones (LAB) 1+ Bedside Urine Blood Negative Bedside Urine Nitrite (LAB) Negative Bedside Urine Leukocyte Esterase (L Negative Assessment and Plan Assessment/Diagnosis [place] I: AMPHETAMINE INDUCED PSYCHOSIS [place] II: DEFERED [place] III: SEIZURE D/O [place] IV: SEVERE [place] V: GAF 40 Recommendation/Plan Medication Management PT STATES SHE DOES HAVE HER PSYCH MEDS IN HER BAG. SHE WAS ADVSIED TO CONTINUE Psychotherapy DEFER TO OUTPT Follow-up/Disposition PLEASE REFER TO [facility] 6010 Recommendation: NII SNOW MD September 09, 2016 08:28
--- NOTE | 2016-09-09 11:07 | EN ---
Date/Time of Note Date/Time of Note DATE: 09/09/16 TIME: 11:05 ER Progress Note The psychiatric evaluation was signed out to me by the departing physician. Psychiatrist has evaluated the patient now that she is no longer intoxicated and amphetamines and states that she could be discharged with drug treatment center follow-up. We are giving her a list of places that she can go for treatment. Patient's is picking her up. Drs. Fermin Quiroga provided discharge instructions with some Vimpat for seizures. She has been instructed to follow-up with a neurologist or primary care doctor. There is also quite possible the patient is not actually having seizures as she was awake during one seizure that I witnessed in saying "I am having a seizure now". She began shaking her body while conversing. When told that she was not actually having a seizure she stopped. She still may benefit from neurological evaluation. ALEKS CRAIG DO September 09, 2016 11:07
[2016-09-09 11:35] VITALS: BP 126/82; PULSE 75; RESP 16; TEMP 98.1
== END 2016-09-09 15:51 | disposition home or self-care (01) ==
LOC: E/R 01:21
DX: R56.9 Unspecified convulsions (principal); F15.10 Other stimulant abuse, uncomplicated; F99 Mental disorder, not otherwise specified; R40.2142 Coma scale, eyes open, spontaneous, at arrival to emergency department; R40.2232 Coma scale, best verbal response, inappropriate words, at arrival to emergency department; R40.2342 Coma scale, best motor response, flexion withdrawal, at arrival to emergency department
CPT/HCPCS: 36415; 71010; 80048; 80306; 80307; 81003; 84484; 85025; 93005; 96372; 96374; 96375; 96376; J2060; J2405; J7030; Z7502

== ENCOUNTER 2016-09-13 10:27 | Emergency (ER) | payer OTHER ==
[~2016-09-13] VITALS: Ht 165.1 cm; Wt 60.0 kg
[~2016-09-13 10:27] MED LIST changes: +LACO200T2 PO
[2016-09-13 10:30] VITALS: Ht 165.1 cm; Wt 60.0 kg
--- NOTE | 2016-09-13 12:05 | ERA ---
ER Documentation Chief Complaint Date/Time DATE: 09/13/16 TIME: 12:04 Chief Complaint BIB RA FOR EVAL OF DRUG USE MARIJUANA HPI The patient is a 31-year-old female, presenting to the ER because of general body pain, congestion for 3 days. She admitted to using marijuana last night. He denies fever, chills, complaints of intermittent dry cough and vague abdominal discomfort for the last 2 days. She denies vomiting, nausea, dysuria , diarrhea, constipation. She has history of drug abuse, smokes socially, drinks socially Past medical history: Seizure disorder, anxiety, low back pain Past surgical history: ROS All systems reviewed and are negative except as per history of present illness. Medications Home Meds Active Scripts Lacosamide (Vimpat) 200 Mg Tablet, 200 MG PO BID, #60 TAB Prov:HELENE KERN MD 09/09/16 Clonazepam* (Klonopin*) 0.5 Mg Tab, 0.5 MG PO Q8H Y for ANXIETY, #20 TAB Prov:LILLIE ANGUIANO 08/18/16 Lacosamide (Vimpat) 150 Mg Tablet, 150 MG PO DAILY, #30 TAB Prov:LILLIE ANGUIANO. 08/18/16 Lacosamide (Vimpat) 100 Mg Tablet, 100 MG PO BID for 30 Days, TAB Prov:LILLIE ANGUIANO 08/18/16 Clonazepam* (Klonopin*) 0.5 Mg Tab, 0.5 MG PO DAILY, #20 TAB Prov:LUCIANO MILLER 08/02/16 Reported Medications Clonazepam* (Klonopin*) 0.5 Mg Tab, 0.5 MG PO Q8H Y for ANXIETY, TAB 07/09/16 Discontinued Reported Medications Oxycodone HCl/Acetaminophen (Percocet 5-325 mg Tablet) 1 Each Tablet, 1-2 EACH PO Q6 Y for PAIN, TAB 07/09/16 Allergies Allergies: Coded Allergies: divalproex sodium (Verified Adverse Reaction, Unknown, SEIZURES, 08/02/16) levetiracetam (Verified Adverse Reaction, Unknown, SEIZURES, 08/02/16) phenytoin (Verified Adverse Reaction, Unknown, SEIZURES, 08/02/16) topiramate (Verified Adverse Reaction, Unknown, SEIZURES, 08/02/16) PMhx/Soc History of Surgery: Yes ([facility] sx) Anesthesia Reaction: No Hx Neurological Disorder: Yes (Seizures) Hx Respiratory Disorders: No Hx Cardiac Disorders: No Hx Psychiatric Problems: Yes (Anxiety) Hx Miscellaneous Medical Probl: Yes Hx Alcohol Use: No Hx Substance Use: Yes Hx Tobacco Use: No Physical Exam Vitals Vital Signs Date Time Temp Pulse Resp B/P Pulse Ox O2 Delivery O2 Flow Rate FiO2 09/13/16 15:44 99.1 82 18 118/78 98 Room Air 09/13/16 14:26 101.0 84 18 123/86 98 Room Air 09/13/16 12:00 101.0 76 16 122/66 98 Room Air 09/13/16 10:30 103.0 112 18 125/60 98 Physical Exam Const: No acute distress. Head: Atraumatic. Eyes: Normal Conjunctiva. ENT: Normal External Ears, Nose and Mouth. Neck: Full range of motion. No meningismus. Resp: Clear to auscultation bilaterally. Cardio: Regular but tachycardic Abd: Soft, non distended, normal bowel sounds, non tender. Skin: No petechiae or rashes. Back: No midline or flank tenderness. Ext: No cyanosis, or edema. Neur: Awake and alert. No focal deficit Psych: Normal Mood and Affect. Result Diagram: 09/13/16 1250 09/13/16 1250 Results 24 hrs Laboratory Tests Test 09/13/16 12:50 09/13/16 13:38 09/13/16 14:15 White Blood Count 4.510^3/ul Red Blood Count 5.2010^6/ul Hemoglobin 13.5g/dl Hematocrit 40.8% Mean Corpuscular Volume 78.5fl Mean Corpuscular Hemoglobin 26.0pg Mean Corpuscular Hemoglobin Concent 33.1g/dl Red Cell Distribution Width 17.2% Platelet Count 26700^3/UL Mean Platelet Volume fl Neutrophils % 74.2% Lymphocytes % 18.3% Monocytes % 7.1% Eosinophils % 0.0% Basophils % 0.2% Nucleated Red Blood Cells % 0.0/100WBC Neutrophils # 3.410^3/ul Lymphocytes # 0.810^3/ul Monocytes # 0.310^3/ul Eosinophils # 0.010^3/ul Basophils # 0.010^3/ul Nucleated Red Blood Cells # 0.010^3/ul Sodium Level 138mmol/L Potassium Level 3.9mmol/L Chloride Level 101mmol/L Carbon Dioxide Level 23mmol/L Anion Gap 18 Blood Urea Nitrogen 12mg/dl Creatinine 0.90mg/dl Glucose Level 98mg/dl Calcium Level 8.8mg/dl Total Bilirubin 0.3mg/dl Direct Bilirubin 0.00mg/dl Indirect Bilirubin 0.3mg/dl Aspartate Amino Transf (AST/SGOT) 32IU/L Alanine Aminotransferase (ALT/SGPT) 34IU/L Alkaline Phosphatase 72IU/L Total Protein 8.3g/dl Albumin 4.4g/dl Globulin 3.90g/dl Albumin/Globulin Ratio 1.12 Lipase 74U/L Ethyl Alcohol Level < 10.0mg/dl Bedside Urine pH (LAB) 5.5 Bedside Urine Protein (LAB) 2+ Bedside Urine Glucose (UA) Negative Bedside Urine Ketones (LAB) 1+ Bedside Urine Blood 3+ Bedside Urine Nitrite (LAB) Negative Bedside Urine Leukocyte Esterase (L Negative Urine Opiates Screen Negative Urine Barbiturates Negative Urine Amphetamines Screen Negative Urine Benzodiazepines Screen Negative Urine Cocaine Screen Negative Urine Cannabinoids Positive Current Medications Medications (Trade) Dose Ordered Sig/Leo Route PRN Reason Start Time Stop Time Status Last Admin Dose Admin Sodium Chloride (NS) 1,000 ml @ 1,000 mls/hr Q1H STAT IV 09/13/16 12:22 09/13/16 13:21 DC 09/13/16 12:54 Ketorolac Tromethamine 30 mg 30 mg ONCE STAT IV 09/13/16 13:43 09/13/16 13:44 DC 09/13/16 13:52 Sodium Chloride (NS) 1,000 ml @ 1,000 mls/hr Q1H ONCE IV 09/13/16 14:00 09/13/16 14:59 DC 09/13/16 14:02 Lorazepam (Ativan) 1 mg ONCE ONCE IV 09/13/16 15:00 09/13/16 15:01 DC 09/13/16 14:43 Procedures/[address] [address] Radiology Main Line: [phone] DIAGNOSTIC IMAGING REPORT Patient: DEANN GONZALEZ : 1985 Age: 31 Sex: F MR #: [id number] DOS: 09/13/16 1222 Ordering MD: JAYDEN DINERO MD Location: E/R Room/Bed: PROCEDURE: Chest Radiograph. CLINICAL INDICATION: Abdominal pain TECHNIQUE: Single frontal chest radiograph. COMPARISON: Chest radiograph 07/09/2016 FINDINGS: The cardiomediastinal silhouette is within normal limits. No infiltrate or effusion is seen. The bones are intact. IMPRESSION: 1. Unremarkable chest radiograph. RPTAT: KK .Ernie Ocasio MD, Date Time Electronically viewed and signed by .Ernie Ocasio MD, on 2016 12:42 .B/ CC: JAYDEN DINERO MD MEDICAL MAKING DECISION: The patient is a 31-year-old female, presenting with acute recurrent seizure, acute dehydration. She was treated with 2 L normal saline for acute dehydration, Toradol 30 mg IV for her general body pain with good response She had a recurrent seizure in the ER where she was treated with Ativan 1 mg IV with good response The differential diagnoses considered include but are not limited to medication non-compliance, alcohol intoxication or withdrawal, drug intoxication or withdrawal, trauma, CVA, tumor, metabolic encephalopathy. Departure Diagnosis: Primary Impression: Recurrent seizures Additional Impressions: Dehydration Leukopenia Condition: Stable Comments She is awake, alert, not postictal. I recommended her admission for observation , however she declined The patient signed out AGAINST MEDICAL ADVICE. Risks, benefits, alternatives were explained to the patient. Risks include but not limited to and permanent disability JAYDEN DINERO MD September 13, 2016 12:05
[2016-09-13] MEDS ORDERED: SOD CHLORIDE 0.9% 1,000 ML IV STA (12:22)
--- NOTE | 2016-09-13 12:42 | RADRPT ---
PROCEDURE: Chest Radiograph. CLINICAL INDICATION: Abdominal pain TECHNIQUE: Single frontal chest radiograph. COMPARISON: Chest radiograph 07/09/2016 FINDINGS: The cardiomediastinal silhouette is within normal limits. No infiltrate or effusion is seen. Th e bones are intact. IMPRESSION: 1. Unremarkable chest radiograph. RPTAT: KK .Ernie Ocasio MD, MD Date Time Electronically viewed and signed by .Ernie Ocasio MD, on 09/13/2016 12:42 .B/
[2016-09-13 13:10] LABS: ADD SCAN DIFF NO
[2016-09-13 13:12] LABS: ABNORMAL IP MESSAGE 1; BASOPHILS % 0.2 % (0.0-2.0); HEMATOCRIT 40.8 % (37.0-47.0); HEMOGLOBIN 13.5 g/dl (12.0-16.0); LYMPHOCYTES # 0.8 10^3/ul (0.8-2.9); LYMPHOCYTES % 18.3 % (15.0-51.0); MEAN CORPUSCULAR HGB CONC 33.1 g/dl (32.0-37.0); MEAN CORPUSCULAR VOLUME 78.5 fl (82.0-101.0); MONOCYTE # 0.3 10^3/ul (0.3-0.9); MONOCYTES % 7.1 % (0.0-11.0); NEUTROPHIL # 3.4 10^3/ul (1.6-7.5); NEUTROPHILS % 74.2 % (39.0-77.0); PLATELET COUNT 204 10^3/UL (140-415); RED CELL DISTRIBUTION WIDTH 17.2 % (11.5-14.5); WHITE BLOOD COUNT 4.5 10^3/ul (4.8-10.8)
[2016-09-13 13:34] LABS: ALBUMIN 4.4 g/dl (3.3-4.9); CHLORIDE 101 mmol/L (97-110); SODIUM 138 mmol/L (135-144)
[2016-09-13 13:35] LABS: POTASSIUM 3.9 mmol/L (3.5-5.1)
[2016-09-13 13:37] LABS: URINE BLOOD (Dip) POC 3+ (NEGATIVE)
[2016-09-13 13:37] LABS: ALANINE AMINOTRANSFERASE 34 IU/L (13-69); ALBUMIN/GLOBULIN RATIO 1.12; ALKALINE PHOSPHATASE 72 IU/L (42-121); ANION GAP 18 (8-16); ASPARTATE AMINO TRANSFERASE 32 IU/L (15-46); BILIRUBIN,INDIRECT 0.3 mg/dl (0-1.1); BILIRUBIN,TOTAL 0.3 mg/dl (0.2-1.3); BLOOD UREA NITROGEN 12 mg/dl (7-20); CARBON DIOXIDE 23 mmol/L (21-31); GLUCOSE 98 mg/dl (70-220); TOTAL PROTEIN 8.3 g/dl (6.1-8.1)
[2016-09-13 13:38] LABS: CALCIUM 8.8 mg/dl (8.4-10.2)
[2016-09-13 13:42] LABS: ETHANOL < 10.0 mg/dl
[2016-09-13] MEDS ORDERED: KETOROLAC 30 MG INJ IV STA (13:43)
[2016-09-13] MEDS ORDERED: SOD CHLORIDE 0.9% 1,000 ML IV ONE (14:00)
[2016-09-13 14:55] LABS: BENZODIAZEPINES Negative (NEGATIVE)
[2016-09-13 14:59] LABS: BARBITURATES Negative (NEGATIVE); CANNABINOIDS Positive (NEGATIVE); COCAINE Negative (NEGATIVE); OPIATES Negative (NEGATIVE)
[2016-09-13] MEDS ORDERED: LORAZEPAM 2 MG INJ IV ONE (15:00)
[2016-09-13 15:44] VITALS: BP 118/78; PULSE 82; RESP 18; TEMP 99.1
[2016-09-14] MEDS ORDERED: RISP2TAB93 PO (04:11)
== END 2016-09-13 15:47 | disposition left against medical advice (07) ==
LOC: E/R 10:27
DX: G40.909 Epilepsy, unspecified, not intractable, without status epilepticus (principal); E86.0 Dehydration; D72.819 Decreased white blood cell count, unspecified
CPT/HCPCS: 36415; 71010; 80053; 80306; 80307; 81003; 83690; 85025; 96361; 96374; 96375; J1885; J2060; J7030; Z7502

== ENCOUNTER 2016-09-13 21:43 | Emergency (ER) | payer OTHER ==
[~2016-09-13] VITALS: Ht 160 cm; Wt 47.7 kg
[2016-09-13 21:51] VITALS: Ht 160 cm; Wt 47.7 kg
[2016-09-13] MEDS ORDERED: ONDANSETRON 4 MG INJ IV STA ×2 (22:26→23:10)
[2016-09-13] MEDS ORDERED: SOD CHLORIDE 0.9% 1,000 ML IV STA (22:26)
[2016-09-13] MEDS ORDERED: LORAZEPAM 2 MG INJ IV ONE (23:30)
[2016-09-13 23:58] VITALS: RESP 17
[2016-09-14 00:09] LABS: ADD SCAN DIFF NO
[2016-09-14 00:23] LABS: ABNORMAL IP MESSAGE 1; BASOPHILS % 0.2 % (0.0-2.0); EOSINOPHILS % 0.2 % (0.0-7.0); HEMOGLOBIN 11.3 g/dl (12.0-16.0); LYMPHOCYTES # 1.2 10^3/ul (0.8-2.9); LYMPHOCYTES % 22.4 % (15.0-51.0); MEAN CORPUSCULAR HEMOGLOBIN 26.3 pg (29.0-33.0); MEAN CORPUSCULAR HGB CONC 33.2 g/dl (32.0-37.0); MEAN CORPUSCULAR VOLUME 79.1 fl (82.0-101.0); MEAN PLATELET VOLUME 9.1 fl (7.4-10.4); MONOCYTE # 0.3 10^3/ul (0.3-0.9); MONOCYTES % 6.5 % (0.0-11.0); NEUTROPHIL # 3.7 10^3/ul (1.6-7.5); NEUTROPHILS % 70.3 % (39.0-77.0); PLATELET COUNT 178 10^3/UL (140-415); RED CELL DISTRIBUTION WIDTH 17.2 % (11.5-14.5); WHITE BLOOD COUNT 5.3 10^3/ul (4.8-10.8)
[2016-09-14 00:42] LABS: ALBUMIN 3.2 g/dl (3.3-4.9); ALBUMIN/GLOBULIN RATIO 1.03; BILIRUBIN,INDIRECT 0.2 mg/dl (0-1.1); BILIRUBIN,TOTAL 0.2 mg/dl (0.2-1.3); CALCIUM 7.9 mg/dl (8.4-10.2); CREATININE 0.67 mg/dl (0.44-1.00); POTASSIUM 3.8 mmol/L (3.5-5.1); TOTAL PROTEIN 6.3 g/dl (6.1-8.1)
--- NOTE | 2016-09-14 01:50 | ERA ---
ER Documentation Chief Complaint Date/Time DATE: 09/14/16 TIME: 01:49 Chief Complaint BIB RA 39, WEAK, VOMITING, HOMELESS LETHARGIC. HPI This is a 31-year-old female brought in by rescue says she is weak and vomiting. Patient is speaking tangentially. Says states "I want to be sedated ". Also states "I want to ". Patient is unable to provide relevant history. Per EMR, patient is here earlier today and discharged home. History of drug abuse and psychotic episodes ROS All systems reviewed and are negative except as per history of present illness. Medications Home Meds Active Scripts Lacosamide (Vimpat) 200 Mg Tablet, 200 MG PO BID, #60 TAB Prov:HELENE KERN MD 09/09/16 Clonazepam* (Klonopin*) 0.5 Mg Tab, 0.5 MG PO Q8H Y for ANXIETY, #20 TAB Prov:LILLIE ANGUIANO S. 08/18/16 Lacosamide (Vimpat) 150 Mg Tablet, 150 MG PO DAILY, #30 TAB Prov:LILLIE ANGUIANO. 08/18/16 Lacosamide (Vimpat) 100 Mg Tablet, 100 MG PO BID for 30 Days, TAB Prov:LILLIE ANGUIANO. 08/18/16 Clonazepam* (Klonopin*) 0.5 Mg Tab, 0.5 MG PO DAILY, #20 TAB Prov:LUCIANO MILLER 08/02/16 Reported Medications Clonazepam* (Klonopin*) 0.5 Mg Tab, 0.5 MG PO Q8H Y for ANXIETY, TAB 07/09/16 Discontinued Reported Medications Oxycodone HCl/Acetaminophen (Percocet 5-325 mg Tablet) 1 Each Tablet, 1-2 EACH PO Q6 Y for PAIN, TAB 07/09/16 Allergies Allergies: Coded Allergies: divalproex sodium (Verified Adverse Reaction, Unknown, SEIZURES, 08/02/16) levetiracetam (Verified Adverse Reaction, Unknown, SEIZURES, 08/02/16) phenytoin (Verified Adverse Reaction, Unknown, SEIZURES, 08/02/16) topiramate (Verified Adverse Reaction, Unknown, SEIZURES, 08/02/16) PMhx/Soc History of Surgery: Yes ([facility] sx) Anesthesia Reaction: No Hx Neurological Disorder: Yes (Seizures) Hx Respiratory Disorders: No Hx Cardiac Disorders: No Hx Psychiatric Problems: Yes (Anxiety) Hx Miscellaneous Medical Probl: Yes Hx Alcohol Use: No Hx Substance Use: Yes Hx Tobacco Use: No Smoking Status: Never smoker Physical Exam Vitals Vital Signs Date Time Temp Pulse Resp B/P Pulse Ox O2 Delivery O2 Flow Rate FiO2 09/14/16 03:36 93 128/85 09/13/16 23:58 93 17 125/78 100 Room Air 09/13/16 21:51 98.7 85 20 108/73 96 Physical Exam Const: [] Head: Atraumatic Eyes: Normal Conjunctiva ENT: Normal External Ears, Nose and Mouth. Neck: Full range of motion..~ No meningismus. Resp: Clear to auscultation bilaterally Cardio: Regular rate and rhythm, no murmurs Abd: Soft, non tender, non distended. Normal bowel sounds Skin: No petechiae or rashes Back: No midline or flank tenderness Ext: No cyanosis, or edema Neur: Awake and alert Psych: Normal Mood and Affect Result Diagram: 09/14/16 0001 09/14/16 0001 Results 24 hrs Laboratory Tests Test 09/13/16 23:00 09/14/16 00:01 Urine Color LT. YELLOW Urine Clarity CLEAR Urine pH 6.0 Urine Specific [place] >=1.030 Urine Ketones NEGATIVE Urine Nitrite NEGATIVE Urine Bilirubin NEGATIVE Urine Urobilinogen 0.2 E.U./dL Urine Leukocyte Esterase NEGATIVE Urine Hemoglobin NEGATIVE Urine Glucose NEGATIVE% Urine Total Protein NEGATIVE White Blood Count 5.310^3/ul Red Blood Count 4.3010^6/ul Hemoglobin 11.3g/dl Hematocrit 34.0% Mean Corpuscular Volume 79.1fl Mean Corpuscular Hemoglobin 26.3pg Mean Corpuscular Hemoglobin Concent 33.2g/dl Red Cell Distribution Width 17.2% Platelet Count 16783^3/UL Mean Platelet Volume 9.1fl Neutrophils % 70.3% Lymphocytes % 22.4% Monocytes % 6.5% Eosinophils % 0.2% Basophils % 0.2% Nucleated Red Blood Cells % 0.0/100WBC Neutrophils # 3.710^3/ul Lymphocytes # 1.210^3/ul Monocytes # 0.310^3/ul Eosinophils # 0.010^3/ul Basophils # 0.010^3/ul Nucleated Red Blood Cells # 0.010^3/ul Sodium Level 139mmol/L Potassium Level 3.8mmol/L Chloride Level 112mmol/L Carbon Dioxide Level 22mmol/L Anion Gap 9 Blood Urea Nitrogen 9mg/dl Creatinine 0.67mg/dl Glucose Level 107mg/dl Calcium Level 7.9mg/dl Total Bilirubin 0.2mg/dl Direct Bilirubin 0.00mg/dl Indirect Bilirubin 0.2mg/dl Aspartate Amino Transf (AST/SGOT) 27IU/L Alanine Aminotransferase (ALT/SGPT) 33IU/L Alkaline Phosphatase 53IU/L Total Protein 6.3g/dl Albumin 3.2g/dl Globulin 3.10g/dl Albumin/Globulin Ratio 1.03 Lipase 85U/L Current Medications Medications (Trade) Dose Ordered Sig/Leo Route PRN Reason Start Time Stop Time Status Last Admin Dose Admin Sodium Chloride (NS) 1,000 ml @ 1,000 mls/hr Q1H STAT IV 09/13/16 22:26 09/13/16 23:25 DC 09/13/16 22:26 Ondansetron HCl (Zofran Inj) 4 mg ONCE STAT IV 09/13/16 22:26 09/13/16 22:28 DC 09/13/16 22:26 Lorazepam (Ativan) 1 mg ONCE ONCE IV 09/13/16 23:30 09/13/16 23:31 DC 09/13/16 23:16 Ondansetron HCl (Zofran Inj) 4 mg ONCE STAT IV 09/13/16 23:10 09/13/16 23:11 DC 09/14/16 00:36 Procedures/MDM Patient's behavioral symptoms have stabilized while in the department. Patient is medically cleared and appropriate for psychiatric evaluation and work up. No e/o neurologic, toxic, infectious, or metabolic cause. Patient was evaluated by telemetry psychiatry and found to be stable for outpatient management which I agree with. Recommend Risperdal at bedtime which will be given a prescription for. Outpatient resources given to patient. Patient understands care plan and diagnosis. Departure Diagnosis: Primary Impression: Acute psychosis Condition: Stable LILLIE ANGUIANO September 14, 2016 01:50
[2016-09-14 02:46] LABS: ADD UMIC NO; URINE BILIRUBIN (Dip) NEGATIVE (NEGATIVE); URINE BLOOD (Dip) NEGATIVE (NEGATIVE); URINE COLOR LT. YELLOW (YELLOW); URINE GLUCOSE (Dip) NEGATIVE (NEGATIVE); URINE KETONES (Dip) NEGATIVE (NEGATIVE); URINE LEUKOCYTE ESTERASE (Dip) NEGATIVE (NEGATIVE); URINE NITRITE (Dip) NEGATIVE (NEGATIVE); URINE TOTAL PROTEIN (Dip) NEGATIVE (NEGATIVE); URINE UROBILINOGEN (Dip) 0.2 E.U./dL (0.1-1.0)
[2016-09-14 03:36] VITALS: BP 128/85; PULSE 93
[2016-09-14] MEDS ORDERED: RISP2TAB93 PO (04:11)
[2016-09-14] MEDS ORDERED: LORAZEPAM 2 MG INJ IV ONE (04:30)
--- NOTE | 2016-09-14 04:39 | PSY ---
Date/Time of Note Date/Time of Note DATE: 09/14/16 TIME: 04:23 Psychiatric Subjective Eval Consent Pt consented to telemedicine: Yes Subjective Evaluation Patient location: emergency Chief Complaint: BIB RA 39, WEAK, VOMITING, HOMELESS LETHARGIC. Reason for consult: hearing voices History of present illness Patient is a 31 yo female homeless with medical hx of seizure do and PPH Of mental illness and amphetamine abuse who came to the ER due to feeling weak and vomitting , came back twice in the ER and then started to complain of hearing voices. Patient states that she is here due to her seizures and wants to be back on her medication. Patient states that sometimes she hears voices telling her where to go, denies voices telling her to hurt herself or other people, denies feeling paranoid, denies feeling depressed or anxious. she is goal directed and logical during the interview, denies any si or hi, denies any past suicidal attempt. she wants to be admitted to a medical monsalve for her seizure. at the end of the interview patient told me that she had a seizure coming at starting to have overall shakes while making some noise. Past psychiatric history denies past admission or suicidal attempt Hospitalization: no Family History denies Medical history Problems Medical Problems: (1) Acute psychosis Status: Acute (2) Breakthrough seizure Status: Acute (3) Closed lamina papyracea fracture Status: Acute (4) Dehydration Status: Acute (5) Drug use Status: Acute (6) Leukopenia Status: Acute (7) Medication refill Status: Acute (8) Menstrual disorder Status: Acute (9) Methamphetamine abuse Status: Acute (10) Microcytic anemia Status: Acute (11) Psychiatric illness Status: Acute (12) Recurrent seizures Status: Acute (13) Seizure Status: Acute (14) Seizure disorder Status: Acute (15) Seizure disorder Status: Acute (16) Seizure disorder Status: Acute (17) Tobacco abuse Status: Acute (18) Tobacco abuse counseling Status: Acute Allergies: Coded Allergies: divalproex sodium (Verified Adverse Reaction, Unknown, SEIZURES, 08/02/16) levetiracetam (Verified Adverse Reaction, Unknown, SEIZURES, 08/02/16) phenytoin (Verified Adverse Reaction, Unknown, SEIZURES, 08/02/16) topiramate (Verified Adverse Reaction, Unknown, SEIZURES, 08/02/16) Substance Abuse Substance abuse history: Yes (amphetamine ) Prior substance abuse treatmen: No Social History Marital status: single Level of education: hs DPA/Conservatorship: No Occupation/Snf: unemployed Psychiatric Objective Eval Review of Systems: Review of Systems: Not Applicable Physical Examination: Physical Examination: Applicable Sleep: Insomnia, Adequate Appetite: Adequate Energy: Adequate Interest: Adequate Mental Status Examination: Appearance: Groomed Eye Contact: Fair Behavior: Cooperative Speech: Pressured AFFECT: Appropriate Mood: Appropriate/Full Though Process: Linear Thought Content: Hallucinations Suicidal: No Homicidal: No On 72 hour hold: No Orientation: x3 Cognition: Alert Insight: Intact Judgement: Intact Attention Span: Intact Laboratory Results Laboratory Tests Test 09/13/16 23:00 09/14/16 00:01 Urine Color LT. YELLOW Urine Clarity CLEAR Urine pH 6.0 Urine Specific [place] >=1.030 Urine Ketones NEGATIVE Urine Nitrite NEGATIVE Urine Bilirubin NEGATIVE Urine Urobilinogen 0.2 E.U./dL Urine Leukocyte Esterase NEGATIVE Urine Hemoglobin NEGATIVE Urine Glucose NEGATIVE% Urine Total Protein NEGATIVE White Blood Count 5.310^3/ul Red Blood Count 4.3010^6/ul Hemoglobin 11.3g/dl Hematocrit 34.0% Mean Corpuscular Volume 79.1fl Mean Corpuscular Hemoglobin 26.3pg Mean Corpuscular Hemoglobin Concent 33.2g/dl Red Cell Distribution Width 17.2% Platelet Count 80551^3/UL Mean Platelet Volume 9.1fl Neutrophils % 70.3% Lymphocytes % 22.4% Monocytes % 6.5% Eosinophils % 0.2% Basophils % 0.2% Nucleated Red Blood Cells % 0.0/100WBC Neutrophils # 3.710^3/ul Lymphocytes # 1.210^3/ul Monocytes # 0.310^3/ul Eosinophils # 0.010^3/ul Basophils # 0.010^3/ul Nucleated Red Blood Cells # 0.010^3/ul Sodium Level 139mmol/L Potassium Level 3.8mmol/L Chloride Level 112mmol/L Carbon Dioxide Level 22mmol/L Anion Gap 9 Blood Urea Nitrogen 9mg/dl Creatinine 0.67mg/dl Glucose Level 107mg/dl Calcium Level 7.9mg/dl Total Bilirubin 0.2mg/dl Direct Bilirubin 0.00mg/dl Indirect Bilirubin 0.2mg/dl Aspartate Amino Transf (AST/SGOT) 27IU/L Alanine Aminotransferase (ALT/SGPT) 33IU/L Alkaline Phosphatase 53IU/L Total Protein 6.3g/dl Albumin 3.2g/dl Globulin 3.10g/dl Albumin/Globulin Ratio 1.03 Lipase 85U/L Assessment and Plan Assessment/Diagnosis [place] I: psychosis nos amphetamine abuse per hx [place] II: deferred [place] III: as per record [place] IV: poor social support , homeless [place] V: gaf 65 Recommendation/Plan Medication Management risperdal 2 mg po qhs for hallucination for 2 weeks needs to stop using methamphetamine Follow-up/Disposition In my opinion,for this patient, outpatient care is the least restrictive option. Based on available evidence, this condition CAN be safely treated at a lower level of care effective today. Patient is stable without clear and convincing evidence of imminent danger due to mental illness that requires acute inpatient psychiatric care as the least restrictive alternative. Please discharge patient with referral for follow up to a outpatient mental health clinic for psychotherapy and medication. [id number] Recommendation: GENARO Baker MD September 14, 2016 04:34
== END 2016-09-14 04:30 | disposition home or self-care (01) ==
LOC: E/R 21:43
DX: F29 Unspecified psychosis not due to a substance or known physiological condition (principal)
CPT/HCPCS: 36415; 80053; 81003; 83690; 85025; 96374; 96375; 96376; J2060; J2405; J7030; Z7502

== ENCOUNTER 2016-09-14 07:11 | Emergency (ER) | payer OTHER ==
[~2016-09-14] VITALS: Ht 157.5 cm; Wt 55.0 kg
[~2016-09-14 07:11] MED LIST changes: -OXYC-279 PO; +RISP2TAB93 PO
[2016-09-14] MEDS ORDERED: OLANZAPINE (ODT) 5 MG TAB ODT ONE (07:30)
[2016-09-14 07:37] VITALS: Ht 157.5 cm; Wt 55.0 kg
[2016-09-14 08:07] LABS: ADD SCAN DIFF NO
[2016-09-14 08:13] LABS: ABNORMAL IP MESSAGE 1; BASOPHILS % 0.3 % (0.0-2.0); HEMATOCRIT 37.7 % (37.0-47.0); HEMOGLOBIN 12.1 g/dl (12.0-16.0); LYMPHOCYTES % 14.8 % (15.0-51.0); MEAN CORPUSCULAR HEMOGLOBIN 25.7 pg (29.0-33.0); MEAN CORPUSCULAR HGB CONC 32.1 g/dl (32.0-37.0); MONOCYTE # 0.5 10^3/ul (0.3-0.9); MONOCYTES % 7.1 % (0.0-11.0); NEUTROPHIL # 5.4 10^3/ul (1.6-7.5); NEUTROPHILS % 77.5 % (39.0-77.0); PLATELET COUNT 182 10^3/UL (140-415); RED BLOOD COUNT 4.71 10^6/ul (4.20-5.40); RED CELL DISTRIBUTION WIDTH 17.6 % (11.5-14.5); WHITE BLOOD COUNT 6.9 10^3/ul (4.8-10.8)
[2016-09-14 08:17] LABS: ADD UMIC YES; URINE BILIRUBIN (Dip) NEGATIVE (NEGATIVE); URINE BLOOD (Dip) 3+ (NEGATIVE); URINE COLOR LT. YELLOW (YELLOW); URINE GLUCOSE (Dip) NEGATIVE (NEGATIVE); URINE KETONES (Dip) 3+ (NEGATIVE); URINE LEUKOCYTE ESTERASE (Dip) NEGATIVE (NEGATIVE); URINE NITRITE (Dip) NEGATIVE (NEGATIVE); URINE TOTAL PROTEIN (Dip) TRACE (NEGATIVE); URINE UROBILINOGEN (Dip) 1.0 E.U./dL (0.1-1.0)
[2016-09-14 08:21] LABS: ALBUMIN 3.6 g/dl (3.3-4.9); CHLORIDE 108 mmol/L (97-110)
[2016-09-14 08:22] LABS: POTASSIUM 4.1 mmol/L (3.5-5.1); SODIUM 140 mmol/L (135-144)
[2016-09-14 08:24] LABS: ALKALINE PHOSPHATASE 60 IU/L (42-121); ANION GAP 14 (8-16); ASPARTATE AMINO TRANSFERASE 42 IU/L (15-46); BILIRUBIN,INDIRECT 0.2 mg/dl (0-1.1); BILIRUBIN,TOTAL 0.2 mg/dl (0.2-1.3); BLOOD UREA NITROGEN 9 mg/dl (7-20); CARBON DIOXIDE 22 mmol/L (21-31); CREATININE 0.65 mg/dl (0.44-1.00); TOTAL PROTEIN 7.2 g/dl (6.1-8.1)
[2016-09-14 08:25] LABS: ALANINE AMINOTRANSFERASE 30 IU/L (13-69); CALCIUM 8.4 mg/dl (8.4-10.2); GLUCOSE 103 mg/dl (70-220)
[2016-09-14 08:28] LABS: ACETAMINOPHEN < 10.0 ug/ml (10.0-30.0); ETHANOL < 10.0 mg/dl; SALICYLATE < 1.0 mg/dl (5.0-30.0)
[2016-09-14 08:40] LABS: BARBITURATES NEGATIVE (NEGATIVE); BENZODIAZEPINES NEGATIVE (NEGATIVE); CANNABINOIDS POSITIVE (NEGATIVE); COCAINE NEGATIVE (NEGATIVE); OPIATES NEGATIVE (NEGATIVE)
[2016-09-14 08:56] LABS: BACTERIA,URINE FEW; MUCUS,URINE RARE; URINE RBCS >200 /HPF (0)
--- NOTE | 2016-09-14 09:12 | PSY ---
Date/Time of Note Date/Time of Note DATE: 09/14/16 TIME: 09:07 Psychiatric Subjective Eval Consent Pt consented to telemedicine: Yes Subjective Evaluation Patient location: emergency Chief Complaint: pt inn waiting room shaking on the floor states honorio wants drugs History of present illness 31 yo homeless female repeatedly coming back to ED and refusing to leave saying she has seizures and needs to be observed. THen I logged on the screen pt immediately began conculsing; after 2 minutes she sat up on the bed and said, she has seizures and needs to be observed. She says she has anxiety, she is afraid someone might hurt her and she does nto have a place to go. She denies to me ah or vh,d enies si or hi, but not able to state, how she will plan for food, [place] [facility] or clothing. She says she is depressed, hopeless, helpless, confused. She says she needs Vimpat and Klonopin, but Vimapt made her hallucinate. Past psychiatric history prior inpt for psychosis Hospitalization: yes Family History denies Medical history Problems Medical Problems: (1) Acute psychosis Status: Acute (2) Breakthrough seizure Status: Acute (3) Closed lamina papyracea fracture Status: Acute (4) Dehydration Status: Acute (5) Drug use Status: Acute (6) Leukopenia Status: Acute (7) Medication refill Status: Acute (8) Menstrual disorder Status: Acute (9) Methamphetamine abuse Status: Acute (10) Microcytic anemia Status: Acute (11) Psychiatric illness Status: Acute (12) Recurrent seizures Status: Acute (13) Seizure Status: Acute (14) Seizure disorder Status: Acute (15) Seizure disorder Status: Acute (16) Seizure disorder Status: Acute (17) Tobacco abuse Status: Acute (18) Tobacco abuse counseling Status: Acute Allergies: Coded Allergies: divalproex sodium (Verified Adverse Reaction, Unknown, SEIZURES, 08/02/16) levetiracetam (Verified Adverse Reaction, Unknown, SEIZURES, 08/02/16) phenytoin (Verified Adverse Reaction, Unknown, SEIZURES, 08/02/16) topiramate (Verified Adverse Reaction, Unknown, SEIZURES, 08/02/16) Substance Abuse Substance abuse history: Yes Prior substance abuse treatmen: Yes Social History Marital status: single Level of education: 9th grade DPA/Conservatorship: No Occupation/Mcfp: homeless Psychiatric Objective Eval Mental Status Examination: Appearance: Poor Hygiene Eye Contact: Good Psychomotor Activity: Normal Behavior: Cooperative Speech: Clear AFFECT: Anxious Mood: Anxious Though Process: Linear Thought Content: Delusions Suicidal: No Homicidal: No On 72 hour hold: No Orientation: x4 Cognition: Alert Insight: Impared Judgement: Impared Laboratory Results Laboratory Tests Test 09/14/16 07:10 09/14/16 07:33 09/14/16 07:50 09/14/16 07:53 Urine Color LT. YELLOW Urine Clarity SLIGHTLY CLOUDY Urine pH 6.5 Urine Specific [place] 1.020 Urine Ketones 3+ Urine Nitrite NEGATIVE Urine Bilirubin NEGATIVE Urine Urobilinogen 1.0 E.U./dL Urine Leukocyte Esterase NEGATIVE Urine Microscopic RBC >200/HPF Urine Microscopic WBC NONE SEEN/HPF Urine Epithelial Cells MODERATE Urine Bacteria FEW Urine Mucus RARE Urine Hemoglobin 3+ Urine Glucose NEGATIVE% Urine Total Protein TRACE White Blood Count 6.910^3/ul Red Blood Count 4.7110^6/ul Hemoglobin 12.1g/dl Hematocrit 37.7% Mean Corpuscular Volume 80.0fl Mean Corpuscular Hemoglobin 25.7pg Mean Corpuscular Hemoglobin Concent 32.1g/dl Red Cell Distribution Width 17.6% Platelet Count 38360^3/UL Mean Platelet Volume fl Neutrophils % 77.5% Lymphocytes % 14.8% Monocytes % 7.1% Eosinophils % 0.0% Basophils % 0.3% Nucleated Red Blood Cells % 0.0/100WBC Neutrophils # 5.410^3/ul Lymphocytes # 1.010^3/ul Monocytes # 0.510^3/ul Eosinophils # 0.010^3/ul Basophils # 0.010^3/ul Nucleated Red Blood Cells # 0.010^3/ul Urine Opiates Screen NEGATIVE Urine Barbiturates NEGATIVE Urine Amphetamines Screen NEGATIVE Urine Benzodiazepines Screen NEGATIVE Urine Cocaine Screen NEGATIVE Urine Cannabinoids POSITIVE Sodium Level 140mmol/L Potassium Level 4.1mmol/L Chloride Level 108mmol/L Carbon Dioxide Level 22mmol/L Anion Gap 14 Blood Urea Nitrogen 9mg/dl Creatinine 0.65mg/dl Glucose Level 103mg/dl Calcium Level 8.4mg/dl Total Bilirubin 0.2mg/dl Direct Bilirubin 0.00mg/dl Indirect Bilirubin 0.2mg/dl Aspartate Amino Transf (AST/SGOT) 42IU/L Alanine Aminotransferase (ALT/SGPT) 30IU/L Alkaline Phosphatase 60IU/L Total Protein 7.2g/dl Albumin 3.6g/dl Globulin 3.60g/dl Albumin/Globulin Ratio 1.00 Salicylates Level < 1.0mg/dl Acetaminophen Level < 10.0ug/ml Ethyl Alcohol Level < 10.0mg/dl Assessment and Plan Assessment/Diagnosis Cornish I: AMPHETAMINE USE DISORDER. PSYCHOSIS NOS [place] II: DEFERED [place] III: SEIZURE DISORDER [place] IV: SEVERE Corn[place] V: 30 Recommendation/Plan Medication Management CONTINUE CURRENT MEDS; START ON ZYRPEXA 10 MG POQHS Psychotherapy DEFER TO INPT Follow-up/Disposition 5150 FOR GD; TRANSFER TO INPT PSYCH 5150 Recommendation: NII Rubalcava MD September 14, 2016 09:12
[2016-09-14] MEDS ORDERED: DIPHENHYDRAMINE 25 MG CAP PO ONE (10:00)
--- NOTE | 2016-09-14 10:52 | ERA ---
ER Documentation Chief Complaint Date/Time DATE: 09/14/16 TIME: 10:49 Chief Complaint pt inn waiting room shaking on the floor states honorio wants drugs HPI Patient is a 31-year-old female with seizures and depression and anxiety who presents saying "I am having convulsions". The patient is actively writhing on the bed when she is saying this and says that she is having seizures although she is completely coherent and answering questions. This is her third visit in the past 24 hours for similar type presentations. She says "I want him to stop ". She is crying and tearful during the exam. She was discharged recently and was refusing to leave the hospital grounds. Upon review of old medical records the patient has multiple visits to the ER and review of the emergency department information exchange shows visits to 4 different emergency departments in the past. ROS All systems reviewed and are negative except as per history of present illness. Medications Home Meds Active Scripts Risperidone* (Risperdal*) 2 Mg Tablet, 2 MG PO bedtime, #14 TAB Prov:LILLIE ANGUIANO 09/14/16 Lacosamide (Vimpat) 200 Mg Tablet, 200 MG PO BID, #60 TAB Prov:HELENE KERN MD 09/09/16 Lacosamide (Vimpat) 150 Mg Tablet, 150 MG PO DAILY, #30 TAB Prov:LILLIE ANGUIANO 08/18/16 Reported Medications Clonazepam* (Klonopin*) 0.5 Mg Tab, 0.5 MG PO Q8H Y for ANXIETY, TAB 07/09/16 Discontinued Reported Medications Oxycodone HCl/Acetaminophen (Percocet 5-325 mg Tablet) 1 Each Tablet, 1-2 EACH PO Q6 Y for PAIN, TAB 07/09/16 Discontinued Scripts Clonazepam* (Klonopin*) 0.5 Mg Tab, 0.5 MG PO Q8H Y for ANXIETY, #20 TAB Prov:LILLIE ANGUIANO 08/18/16 Lacosamide (Vimpat) 100 Mg Tablet, 100 MG PO BID for 30 Days, TAB Prov:LILLIE ANGUIANO 08/18/16 Clonazepam* (Klonopin*) 0.5 Mg Tab, 0.5 MG PO DAILY, #20 TAB Prov:LUCIANO MILLER 08/02/16 Allergies Allergies: Coded Allergies: divalproex sodium (Verified Adverse Reaction, Unknown, SEIZURES, 08/02/16) levetiracetam (Verified Adverse Reaction, Unknown, SEIZURES, 08/02/16) phenytoin (Verified Adverse Reaction, Unknown, SEIZURES, 08/02/16) topiramate (Verified Adverse Reaction, Unknown, SEIZURES, 08/02/16) PMhx/Soc History of Surgery: Yes ([facility]) Anesthesia Reaction: No Hx Neurological Disorder: Yes (Seizures) Hx Respiratory Disorders: No Hx Cardiac Disorders: No Hx Psychiatric Problems: Yes (Anxiety) Hx Miscellaneous Medical Probl: Yes Hx Alcohol Use: Yes Hx Substance Use: Yes Hx Tobacco Use: Yes Smoking Status: Current every day smoker FmHx Patient is adopted and does not know family history Physical Exam Vitals Vital Signs Date Time Temp Pulse Resp B/P Pulse Ox O2 Delivery O2 Flow Rate FiO2 09/14/16 09:19 100.1 98 18 135/85 98 Room Air 09/14/16 07:37 100.2 99 18 140/85 97 Physical Exam Const: Appears to be having pseudoseizures with writhing on the bed however completely coherent and answering questions Head: Atraumatic Eyes: Normal Conjunctiva ENT: Normal External Ears, Nose and Mouth. Neck: Full range of motion..~ No meningismus. Resp: Clear to auscultation bilaterally Cardio: Regular rate and rhythm, no murmurs Abd: Soft, non tender, non distended. Normal bowel sounds Skin: No petechiae or rashes Back: No midline or flank tenderness Ext: No cyanosis, or edema Neur: Awake and answering questions Psych: Depressed affect, tearful, pseudoseizures Result Diagram: 09/14/16 0733 09/14/16 0753 Results 24 hrs Laboratory Tests Test 09/14/16 07:10 09/14/16 07:33 09/14/16 07:50 09/14/16 07:53 Urine Color LT. YELLOW Urine Clarity SLIGHTLY CLOUDY Urine pH 6.5 Urine Specific [place] 1.020 Urine Ketones 3+ Urine Nitrite NEGATIVE Urine Bilirubin NEGATIVE Urine Urobilinogen 1.0 E.U./dL Urine Leukocyte Esterase NEGATIVE Urine Microscopic RBC >200/HPF Urine Microscopic WBC NONE SEEN/HPF Urine Epithelial Cells MODERATE Urine Bacteria FEW Urine Mucus RARE Urine Hemoglobin 3+ Urine Glucose NEGATIVE% Urine Total Protein TRACE White Blood Count 6.910^3/ul Red Blood Count 4.7110^6/ul Hemoglobin 12.1g/dl Hematocrit 37.7% Mean Corpuscular Volume 80.0fl Mean Corpuscular Hemoglobin 25.7pg Mean Corpuscular Hemoglobin Concent 32.1g/dl Red Cell Distribution Width 17.6% Platelet Count 41989^3/UL Mean Platelet Volume fl Neutrophils % 77.5% Lymphocytes % 14.8% Monocytes % 7.1% Eosinophils % 0.0% Basophils % 0.3% Nucleated Red Blood Cells % 0.0/100WBC Neutrophils # 5.410^3/ul Lymphocytes # 1.010^3/ul Monocytes # 0.510^3/ul Eosinophils # 0.010^3/ul Basophils # 0.010^3/ul Nucleated Red Blood Cells # 0.010^3/ul Urine Opiates Screen NEGATIVE Urine Barbiturates NEGATIVE Urine Amphetamines Screen NEGATIVE Urine Benzodiazepines Screen NEGATIVE Urine Cocaine Screen NEGATIVE Urine Cannabinoids POSITIVE Sodium Level 140mmol/L Potassium Level 4.1mmol/L Chloride Level 108mmol/L Carbon Dioxide Level 22mmol/L Anion Gap 14 Blood Urea Nitrogen 9mg/dl Creatinine 0.65mg/dl Glucose Level 103mg/dl Calcium Level 8.4mg/dl Total Bilirubin 0.2mg/dl Direct Bilirubin 0.00mg/dl Indirect Bilirubin 0.2mg/dl Aspartate Amino Transf (AST/SGOT) 42IU/L Alanine Aminotransferase (ALT/SGPT) 30IU/L Alkaline Phosphatase 60IU/L Total Protein 7.2g/dl Albumin 3.6g/dl Globulin 3.60g/dl Albumin/Globulin Ratio 1.00 Salicylates Level < 1.0mg/dl Acetaminophen Level < 10.0ug/ml Ethyl Alcohol Level < 10.0mg/dl Current Medications Medications (Trade) Dose Ordered Sig/Leo Route PRN Reason Start Time Stop Time Status Last Admin Dose Admin Olanzapine (Zyprexa Zydis) 5 mg ONCE ONCE ODT 09/14/16 07:30 09/14/16 07:31 DC 09/14/16 09:09 Olanzapine (Zyprexa Zydis) 10 mg QHS ODT 09/14/16 21:00 Diphenhydramine HCl (Benadryl) 25 mg ONCE ONCE PO 09/14/16 10:00 09/14/16 10:01 DC 09/14/16 10:32 Procedures/MDM Smoking Cessation Therapy: Pt. was lectured for greater than 3 minutes on the health risks of continued smoking and the benefits of cessation. Patient is a 31-year-old female with seizures who presents with what appears to be grave disability and psychosis. She was medically cleared. I do not believe she is having actual seizures as I feel these are pseudoseizures. The patient was seen by Dr. Patiño from psychiatry who has recommended a 5150 hold for grave disability. She was seen from the mental hygiene consultant at [facility] and will be transferred for psychiatric treatment. The patient was given Zyprexa 5 mg ODT. Departure Diagnosis: Primary Impression: Grave disability Additional Impressions: Psychosis Qualified Code: F29 - Psychosis, unspecified psychosis type Pseudoseizures Condition: JAVIER Leavitt MD September 14, 2016 10:52
[2016-09-14 11:56] VITALS: BP 133/84; PULSE 90; RESP 18; TEMP 101.7
[2016-09-14] MEDS ORDERED: ACETAMINOPHEN 325 MG TAB ONE (11:59)
[2016-09-14] MEDS ORDERED: ACETAMINOPHEN 325 MG TAB PO ONE (12:30)
[2016-09-14] MEDS ORDERED: OLANZAPINE (ODT) 5 MG TAB ODT SCH (21:00)
== END 2016-09-14 12:45 ==
LOC: E/R 07:11
DX: F79 Unspecified intellectual disabilities (principal); F29 Unspecified psychosis not due to a substance or known physiological condition; F44.5 Conversion disorder with seizures or convulsions; F17.210 Nicotine dependence, cigarettes, uncomplicated; R40.2142 Coma scale, eyes open, spontaneous, at arrival to emergency department; R40.2252 Coma scale, best verbal response, oriented, at arrival to emergency department; R40.2362 Coma scale, best motor response, obeys commands, at arrival to emergency department
CPT/HCPCS: 36415; 80053; 80306; 80307; 81001; 85025; Z7502; Z7610; 81003

== ENCOUNTER 2017-09-05 18:00 | Emergency (ER) | END 2017-09-05 19:18 | disposition left against medical advice (07) ==

== ENCOUNTER 2017-09-05 19:05 | Outpatient (CLI) | END 2017-09-05 23:05 | disposition home or self-care (01) ==

== ENCOUNTER 2017-10-19 06:10 | Inpatient (IN) | END 2017-10-20 14:35 | disposition left against medical advice (07) | DRG 775 ==

== ENCOUNTER 2017-12-17 17:17 | Emergency (ER) | END 2017-12-17 19:00 | disposition home or self-care (01) ==

== ENCOUNTER 2018-01-27 14:47 | Emergency (ER) | END 2018-01-27 16:37 | disposition home or self-care (01) ==

== ENCOUNTER 2018-02-05 16:56 | Emergency (ER) | END 2018-02-05 19:36 | disposition home or self-care (01) ==

== ENCOUNTER 2018-02-06 15:21 | Emergency (ER) | END 2018-02-06 18:50 | disposition home or self-care (01) ==

== ENCOUNTER 2018-02-06 20:26 | Emergency (ER) | END 2018-02-06 22:24 | disposition home or self-care (01) ==

== ENCOUNTER 2018-10-22 15:21 | Emergency (ER) | payer OTHER ==
[~2018-10-22] VITALS: Ht 170.2 cm; Wt 85.0 kg
[~2018-10-22 15:21] MED LIST changes: -CLON-429 PO; -LACO100T3 PO; -LACO150T2 PO; -RISP2TAB93 PO
[2018-10-22 15:22] VITALS: Ht 170.2 cm; Wt 85.0 kg
[2018-10-22] MEDS ORDERED: LORAZEPAM 2 MG INJ ONE (15:36)
[2018-10-22] MEDS ORDERED: ONDANSETRON 4 MG INJ IV STA (15:44)
[2018-10-22] MEDS ORDERED: SOD CHLORIDE 0.9% 1,000 ML IV STA (15:44)
[2018-10-22] MEDS ORDERED: HALOPERIDOL 5 MG INJ ONE (15:46)
--- NOTE | 2018-10-22 15:47 | ERD ---
ER Documentation Chief Complaint Chief Complaint HPI This is a 33-year-old woman brought in by EMS for possible seizure activity. Yovana hylton has a history of marijuana abuse, significant anxiety, and psychogenic nonepileptic form seizures/tremors. She has been here multiple times in the past for similar shaking episodes and anxiety, usually controlled with intravenous lorazepam given in the ED. She states today is her daughter's priya ye and she had significant stress at home due to the birthday libertarian and she had very little sleep last night. She had no loss of bowel or bladder control, no complaints of chest pain or shortness of breath, no fevers or chills. ROS All systems reviewed and are negative except as per history of present illness. Medications Home Meds Reported Medications Norethindrone-E.estradiol-Iron (Blisovi Fe 1.5-30 Tablet) 1 Each Tablet, 1 EACH PO DAILY, TAB 10/22/18 Lacosamide (Vimpat) 200 Mg Tablet, 200 MG PO BID, TAB 10/22/18 Discontinued Reported Medications Lacosamide (Vimpat) 200 Mg Tablet, 200 MG PO BID, TAB 12/17/17 Allergies Allergies: Coded Allergies: divalproex sodium (Verified Adverse Reaction, Unknown, SEIZURES, 10/22/18) levetiracetam (Verified Adverse Reaction, Unknown, SEIZURES, 10/22/18) phenytoin (Verified Adverse Reaction, Unknown, SEIZURES, 10/22/18) topiramate (Verified Adverse Reaction, Unknown, SEIZURES, 10/22/18) PMhx/Soc Significant anxiety, psychogenic tremors, pseudoseizures History of Surgery: No Anesthesia Reaction: No Hx Neurological Disorder: Yes (Pseudoseizures) Hx Respiratory Disorders: No Hx Cardiac Disorders: No Hx Psychiatric Problems: Yes (Anxiety, psychogenic nonepileptic seizures) Hx Miscellaneous Medical Probl: No Hx Alcohol Use: No Hx Substance Use: Yes (marijuana) Hx Tobacco Use: No FmHx Family History: No diabetes Physical Exam Vitals Vital Signs Date Temp Pulse Resp B/P (MAP) Pulse Ox O2 O2 Flow FiO2 Time Delivery Rate 10/22/18 90 20 108/66 100 Room Air 18:26 (80) 10/22/18 98.8 122 24 123/86 100 15:22 (98) 10/22/18 99.1 86 33 123/86 99 Room Air 15:21 (98) Per nurse's records Physical Exam GENERAL: Well-developed, well-nourished, well-hydrated, agitated, shaking uncontrollably, afebrile HEENT: Moist mucous membranes, pink conjunctiva, no cervical spine tenderness or step-off deformities, no goiter, no jaundice or icterus, extraocular movements intact without pain. No submandibular induration, and no pharyngeal erythema NEURO: Alert and oriented 3, able to answer questions and follow commands, eyes open, shaking violently with purposeful movement to the upper and lower extremities, no tonic-clonic seizure activity noted, moving all extremities, CARDIAC: Tachycardic and regular, no murmurs rubs or gallops LUNGS: Clear bilaterally no wheezing crackles or stridor ABDOMEN: Soft nontender, no guarding, no rigidity, no rebound, no psoas sign no obturator sign. SKIN: Warm and dry to touch, no abrasions, contusions, or hematomas, no lacerations, no ecchymosis, no target lesions, and without ulcers EXTREMITIES: No clubbing cyanosis or edema, calves are bilaterally symmetrical, no Homans sign, no popliteal cord sign. Distal pulses equal and bilateral PSYCH: Anxious and agitated Result Diagram: 10/22/18 1609 10/22/18 1729 Results 24 hrs Laboratory Tests Test 10/22/18 16:08 10/22/18 16:09 10/22/18 17:29 10/22/18 17:49 Sodium Level 143 mmol/L 143 mmol/L Potassium Level 5.7 mmol/L 4.0 mmol/L Chloride Level 110 mmol/L 111 mmol/L Carbon Dioxide 22 mmol/L 23 mmol/L Level Anion Gap 11 9 Blood Urea Nitrogen 6 mg/dl 6 mg/dl Creatinine 0.92 mg/dl 0.80 mg/dl Est Glomerular > 60 mL/min > 60 mL/min Filtrat Rate mL/min Glucose Level 90 mg/dl 99 mg/dl Calcium Level 9.3 mg/dl 9.3 mg/dl Total Bilirubin 0.6 mg/dl Direct Bilirubin 0.00 mg/dl Indirect Bilirubin 0.6 mg/dl Aspartate Amino 62 IU/L Transf (AST/SGOT) Alanine 70 IU/L Aminotransferase (A LT/SGPT) Alkaline 76 IU/L Phosphatase Total Protein 9.0 g/dl Albumin 4.7 g/dl Globulin 4.30 g/dl Albumin/Globulin 1.09 Ratio Lipase 88 U/L White Blood Count 7.4 10^3/ul Red Blood Count 5.33 10^6/ul Hemoglobin 13.0 g/dl Hematocrit 40.9 % Mean Corpuscular 76.7 fl Volume Mean Corpuscular 24.4 pg Hemoglobin Mean Corpuscular 31.8 g/dl Hemoglobin Concent Red Cell 16.8 % Distribution Width Platelet Count 440 10^3/UL Mean Platelet 8.8 fl Volume Immature 0.300 % Granulocytes % Neutrophils % 79.8 % Lymphocytes % 15.9 % Monocytes % 3.4 % Eosinophils % 0.3 % Basophils % 0.3 % Nucleated Red Blood 0.0 /100WBC Cells % Immature 0.020 10^3/ul Granulocytes # Neutrophils # 5.9 10^3/ul Lymphocytes # 1.2 10^3/ul Monocytes # 0.3 10^3/ul Eosinophils # 0.0 10^3/ul Basophils # 0.0 10^3/ul Nucleated Red Blood 0.0 10^3/ul Cells # POC Beta HCG, NEGATIVE Qualitative Current Medications Medications Dose Sig/Leo Start Time Status Last (Trade) Ordered Route PRN Stop Time Admin Dose Reason Admin Haloperidol 2 mg ONCE ONCE 10/22/18 DC (Haldol) IV 16:00 10/22/18 16:00 Sodium 1,000 ml @ Q1H STAT 10/22/18 DC 10/22/18 Chloride 1,000 mls/hr IV 15:44 16:27 10/22/18 16:43 Ondansetron 4 mg ONCE STAT 10/22/18 DC HCl (Zofran IV 15:44 Inj) 10/22/18 15:47 Lorazepam 1 mg ONCE ONCE 10/22/18 DC 10/22/18 (Ativan) IV 16:00 15:52 10/22/18 16:01 Haloperidol 5 mg STK-MED 10/22/18 DC (Haldol) ONCE .ROUTE 15:46 10/22/18 15:47 Haloperidol 5 mg ONCE ONCE 10/22/18 DC 10/22/18 (Haldol) IM 16:00 15:52 10/22/18 16:01 Procedures/MDM IV line was established patient was placed on offal separator rhythm strip revealed a sinus tachycardia at 120 bpm with upright P and T waves. Patient was afebrile Administered 1 L normal saline IV and Ativan 1 mg IV followed by haloperidol 5 mg IM x1 because patient pulled out her IV line CBC was normal, electrolytes revealed hyperkalemia 5.7 although I suspect this is artifactual, liver function tests unremarkable, repeat electrolytes revealed normal potassium. Differential diagnoses considered, included but not limited to acute coronary syndrome, pulmonary embolism, aortic dissection, abdominal aortic aneurysm, sepsis, stroke, meningitis, encephalitis, pneumonia, appendicitis, cholecystitis, bowel obstruction, pyelonephritis, nephrolithiasis, cystitis, as well as metabolic, hematologic, and electrolyte abnormalities. As well as abscess, cellulitis, fractures, and dislocations. Patient feels much better at this time, and vital signs are normal, symptoms have improved. I did give strict instructions to return to the ED if symptoms continue or worsen, patient will otherwise follow-up with primary care physician. Patient understood instructions and agreed to plan. Disclaimer: Inadvertent spelling and grammatical errors are likely due to EHR/dictation software use and do not reflect on the overall quality of patient care. Also, please note that the electronic time recorded on this note does not necessarily reflect the actual time of the patient encounter. Departure Diagnosis: Primary Impression: Pseudoseizure Additional Impression: Acute anxiety Condition: Good HELENE KERN MD Oct 22, 2018 15:47
[2018-10-22] MEDS ORDERED: HALOPERIDOL 5 MG INJ IV ONE (16:00)
[2018-10-22] MEDS ORDERED: HALOPERIDOL 5 MG INJ IM ONE (16:00)
[2018-10-22] MEDS ORDERED: LORAZEPAM 2 MG INJ IV ONE (16:00)
[2018-10-22] MEDS ORDERED: LACO200T2 PO (16:01)
[2018-10-22] MEDS ORDERED: [UNRECOGNIZED DRUG - CODE] PO (16:01)
[2018-10-22 18:26] VITALS: BP 108/66; PULSE 90; RESP 20
== END 2018-10-22 18:30 | disposition home or self-care (01) ==
LOC: E/R 15:21
DX: F44.5 Conversion disorder with seizures or convulsions (principal); R40.2142 Coma scale, eyes open, spontaneous, at arrival to emergency department; R40.2312 Coma scale, best motor response, none, at arrival to emergency department; R40.2222 Coma scale, best verbal response, incomprehensible words, at arrival to emergency department
CPT/HCPCS: 36415; 80048; 80053; 81025; 83690; 85025; 96361; 96372; 96374; J1630; J2060; J2405; J7030; Z7502